=== PATIENT | female | born 1960 | race Two or more races ===

== ENCOUNTER 2017-05-19 21:51 | Inpatient (IN) | payer BC ==
[2017-05-19] MEDS ORDERED: Acetaminophen TAB* 325 MG PO ONE (22:26)
[2017-05-19] MEDS ORDERED: Ketorolac INJ* 30 MG/ML 1 ML VIAL IV PUSH ONE (22:27)
[2017-05-19] MEDS ORDERED: Ondansetron INJ* 2 MG/ML VIAL IV ONE (22:27)
[2017-05-19] MEDS: NS 0.9% 1000 ML* 2,000 ML IV ONE (23:13)
[2017-05-19 23:19] LABS: ABS Basophils 0.2 10^3/ul (0-0.2); ABS Eosinophils 0.2 10^3/ul (0-0.6); ABS Lymphocytes 0.2 10^3/ul (1.0-4.8); ABS Monocytes 0.7 10^3/ul (0-0.8); ABS Neutrophils 13.8 10^3/ul (1.5-7.7); ABS Nucleated RBC 0 10^3/ul; Eosinophil % 1.6 % (0-6); Hematocrit 35 % (35-47); Hemoglobin 11.1 g/dl (12.0-16.0); Lymphocyte % 1.1 % (25-47); Mean Corpuscular HGB Conc 32 g/dl (31-36); Mean Corpuscular Hemoglobin 25 pg (27-31); Mean Corpuscular Volume 77 fL (80-97); Mean Platelet Volume 9 um3 (7.4-10.4); Nucleated Red Blood Cells % 0; Platelet Count 203 10^3/ul (150-450); Red Blood Count 4.46 10^6/ul (4.0-5.4); Red Cell Distribution Width 14 % (10.5-15)
[2017-05-19 23:33] LABS: EGFR Non-African American 26.6 (>60)
[2017-05-19] MEDS ORDERED: Insulin REGULAR(*) 1 UNITS UNIT IV PUSH ONE (23:44)
[2017-05-19] MEDS ORDERED: NS 0.9% 1000 ML* 1,000 ML IV ONE (23:46)
[2017-05-20] MEDS: NS 0.9% 1000 ML* 2,000 ML IV ONE (00:22)
--- NOTE | 2017-05-20 01:40 | ED ---
Gokul Bateman Gabriel, scribBailey Munoz MD on 05/19/17 at 2222 . Influenza-Like Illness - HPI Summary HPI Summary: This patient is a 56 year old F presenting to [facility] accompanied by her with a chief complaint of flu like illness since 05-15-17. The patient rates the pain 9/10 in severity. Patient reports vomiting, back pain, neck pain, sore throat, myalgia fever of 102 F, and lump in her groin with hard unilateral vaginal wall. Patient denies diarrhea. - History of Current Complaint Chief Complaint: EDFever Time Seen by Provider: 05/19/17 22:12 Hx Obtained From: Patient Onset/Duration: Lasting Days, Still Present Severity: Moderate Associated Signs & Symptoms: Fever, Myalgia, Sore Throat, Vomiting - Allergy/Home Medications Allergies/Adverse Reactions: Allergies Allergy/AdvReac Type Severity Reaction Status Date / Time No Known Allergies Allergy Verified 05/19/17 22:57 PMH/Surg Hx/FS Hx/Imm Hx Endocrine/Hematology History: Reports: Hx Diabetes Cardiovascular History: Reports: Hx Hypertension, Other Cardiovascular Problems/ Disorders - STATES "ENLARGED HEART" Musculoskeletal History: Reports: Hx Bursitis - SEPTEMBER 2015, LEFT HIP, INJECTION HELPED Sensory History: Reports: Hx Cataracts - BILATERAL, Hx Contacts or Glasses - READING Comment Only: Hx Hearing Aid - HARD OF HEARING, NO AID Opthamlomology History: Reports: Hx Cataracts - BILATERAL, Hx Contacts or Glasses - READING Neurological History: Reports: Hx Nerve Disease Psychiatric History: Reports: Hx Anxiety - Surgical History Surgery Procedure, Year, and Place: 2004 HYSTERECTOMY [facility]. LIPOMA OF RIGHT HIP [facility] Hx Anesthesia Reactions: Yes - N/V Infectious Disease History: No Infectious Disease History: Denies: Traveled Outside the [place] in Last 30 Days - Family History Known Family History: Positive: Cardiac Disease, Hypertension - Social History Alcohol Use: None Alcohol Amount: 1-2 DRINKS/MONTH Substance Use Type: Reports: None Smoking Status (MU): Former Smoker Have You Smoked in the Last Year: No Review of Systems Positive: Fever Positive: Sore Throat Positive: Vomiting Positive: other - vaginal wall is hard Positive: Myalgia, Other - neck and back pain All Other Systems Reviewed And Are Negative: Yes Physical Exam - Summary Physical Exam Summary: VITAL SIGNS: Reviewed. GENERAL: Patient is a well-developed and nourished female who is lying comfortable in the stretcher. Patient is not in any acute respiratory distress. HEAD AND FACE: No signs of trauma. No ecchymosis, hematomas or skull depressions. No sinus tenderness. EYES: PERRLA, EOMI x 2, No injected conjunctiva, no nystagmus. EARS: Hearing grossly intact. Ear canals and tympanic membranes are within normal limits. MOUTH: Oropharynx within normal limits. NECK: Supple, trachea is midline, no adenopathy, no JVD, no carotid bruit, no c- spine tenderness, neck with full ROM. CHEST: Symmetric, no tenderness at palpation LUNGS: Clear to auscultation bilaterally. No wheezing or crackles. CVS: Regular rate and rhythm, S1 and S2 present, no murmurs or gallops appreciated. ABDOMEN: Soft, non-tender. No signs of distention. No rebound no guarding, and no masses palpated. Bowel sounds are normal. EXTREMITIES: FROM in all major joints, no edema, no cyanosis or clubbing. NEURO: Alert and oriented x 3. No acute neurological deficits. Speech is normal and follows commands. SKIN: Dry and warm : Very small dried boil over the right genital area Triage Information Reviewed: Yes Vital Signs On Initial Exam: Initial Vitals Temp Pulse Resp BP Pulse Ox 99.8 F 119 20 112/63 100 05/19/17 21:57 05/19/17 21:57 05/19/17 21:57 05/19/17 21:57 05/19/17 21:57 Vital Signs Reviewed: Yes Diagnostics - Vital Signs Vital Signs Temp Pulse Resp BP Pulse Ox 05/19/17 21:57 99.8 F 119 20 112/63 100 - Laboratory Result Diagrams: 05/19/17 22:58 05/19/17 22:58 Lab Statement: Any lab studies that have been ordered have been reviewed, and results considered in the medical decision making process. - Radiology CXR Radiology Interpretation Completed By: ED Physician - no acute process - CT CT ABD/Pelvis CT Interpretation Completed By: Radiologist - there is no bowel obstruction, free air, or free fluid. Negative for diverticulitis or colitis. Normal appendix. No urinary tract stone or obstruction. No acute abnormalities of the liver, spleen, gallbladder, pancreas, or adrenal glands. Osseous structures are intact. ED physician has reviewed this report. Flu Symptom Course/Dx - Course Assessment/Plan: This patient is a 56 year old F presenting to [facility] accompanied by her with a chief complaint of flu like illness since 2- 18. The patient rates the pain 9/10 in severity. Patient reports vomiting, back pain, neck pain, sore throat, myalgia fever of 102 F, and lump in her groin with hard unilateral vaginal wall. Patient denies diarrhea. CXR reveals, no acute process. CT ABD/Pelvis, reveals per radiology, there is no bowel obstruction, free air, or free fluid. Negative for diverticulitis or colitis. Normal appendix. No urinary tract stone or obstruction. No acute abnormalities of the liver, spleen, gallbladder, pancreas, or adrenal glands. Osseous structures are intact. Test results with no significant abnormalities except for a glucose of 666 and a lactic acid of 2.7. Pt was negative for influenza A and B. In the ED course the patient was given Zofran, toradol, insulin and IV fluids. Dx hyperglycemia, viral syndrome, nausea, vomiting,. We discussed patient care with Dr. Colvin and they have agreed to admit the patient. Patient will be admitted to [facility] under Dr. Colvin. The patient is agreeable with this plan. - Diagnoses Provider Diagnoses: Hyperglycemia, Vomiting, Viral syndrome - Physician Notifications Discussed Care Of Patient With: Nura Colvin Time Discussed With Above Provider: 01:20 Instructed by Provider To: Admit As Inpatient Discharge - Discharge Plan Condition: Fair Disposition: ADMITTED TO [facility] Referrals: Nick Carlin MD [Primary Care Provider] - The documentation as recorded by the Gokul sanchez Gabriel accurately reflects the service I personally performed and the decisions made by me, Bailey Lieberman MD.
[2017-05-20] MEDS ORDERED: Insulin REGULAR(*) 1 UNITS UNIT IV PUSH ONE (01:46)
[2017-05-20] MEDS ORDERED: CMCS:Melatonin (NF) 3 MG TAB PO PRN (01:49)
[2017-05-20] MEDS ORDERED: Albuterol 2.5 MG/3 ML NEB.SOL* (0.083%) INH PRN (01:49)
[2017-05-20] MEDS ORDERED: NS 0.9% 1000 ML* 1,000 ML IV SCH (02:00)
[2017-05-20] MEDS ORDERED: Fluconazole 100 MG TAB* TAB PO ONE (02:06)
[2017-05-20 02:15] LABS: Urine Appearance Turbid; Urine Blood 2+ (Negative); Urine Color Yellow; Urine Ketones Trace (Negative); Urine Protein 2+(100 mg/dL) (Negative); Urine Specific Gravity 1.024 (1.010-1.030); Urine Urobilinogen Negative (Negative)
[2017-05-20] MEDS ORDERED: Insulin LISPRO* 1 UNITS UNIT SUBCUT ONE (02:21)
[2017-05-20] MEDS ORDERED: Dextrose 50% Syringe 50 ML* 25 GM/50 ML SYRINGE IV PUSH PRN (02:21)
[2017-05-20] MEDS: Phenazopyridine TAB* 100 MG PO PRN ×2 (02:38→08:34)
--- NOTE | 2017-05-20 03:09 | HP ---
H&P (Free Text) History and Physical: PCP: Tommie Carlin MD Date/Time: 05/20/2017 0145 CC: malaise HPI: Mrs Grady Jose is a 56YO female HX DM2 w/ diabetic retinopathy/ neuropathy, HTN w/ hypertensive retinopathy who reports fatigue, subjective F/C , & myalgias starting 4-5 days ago. Here in ED she just began having severe vaginal burning after urination w/o frequency or urgency. She denies abdominal pain, chest pain, SOB, cough, congestion, N/V, diarrhea, change in bowels, or other issues. She does admit to non-adherence with diabetic medications, particularly metformin. PMedHx DM2 diabetic retinopathy diabetic neuropathy HTN hypertensive retinopathy Ambulatory Orders Nursing to reconcile. 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; full code status FamHx: positive for DM2 & HTN ROS: as above, otherwise reviewed and all were negative vitals: Vital Signs Temp 37.9 C 05/19/17 23:20 Pulse 109 05/20/17 01:30 Resp 15 05/20/17 01:30 BP 115/63 05/20/17 01:30 Pulse Ox 96 05/20/17 01:30 Intake & Output 05/19/17 05/19/17 05/20/17 11:59 23:59 11:59 Intake Total 1999 Balance 1999 Weight 68.039 kg Intake: IV Fluids 1999 Constitutional: NAD, normally developed, overweight black female HEENM: atraumatic; sclera/conjunctiva: anicteric/clear; hearing: clinically intact; oropharynx: clear, mucosa moist Neck: soft tissue: no nuchal rigidity; thyroid: normal Pulmonary: clear to auscultation bilaterally, good aeration, no accessory muscle use CV: RR/RR, normal S1S2, no carotid bruit, no jugular venous distention, 2+ B DP/ PT, no edema Abdominal: soft, non-distended, non-tender, no rebound/guarding/rigidity, normoactive bowel sounds, no hepatosplenomegaly or masses, no costovertebral angle tenderness Genitourinary: R labia minora with punctate excoriations/abrasions, no discharge or malodor Musculoskeletal: general: grossly intact, no tenderness w/ palpation Integumental: normal appearance and texture of exposed skin Psychiatric orientation: AA&O to PPS affect: calm mood: cooperative eye contact: fair content: reliable responses: timely insight: fair Testing: Lab Results 05/19/17 05/19/17 05/19/17 Range/Units 22:58 22:58 22:58 WBC 15.0 H (3.5-10.8) 10^3/ul RBC 4.46 (4.0-5.4) 10^6/ul Hgb 11.1 L (12.0-16.0) g/dl Hct 35 (35-47) % MCV 77 L (80-97) fL MCH 25 L (27-31) pg MCHC 32 (31-36) g/dl RDW 14 (10.5-15) % Plt Count 203 (150-450) 10^3/ul MPV 9 (7.4-10.4) um3 Neut % (Auto) 91.6 H (38-83) % Lymph % (Auto) 1.1 L (25-47) % [place] % (Auto) 4.5 (1-9) % Eos % (Auto) 1.6 (0-6) % Baso % (Auto) 1.2 (0-2) % Absolute Neuts (auto) 13.8 H (1.5-7.7) 10^3/ul Absolute Lymphs (auto) 0.2 L (1.0-4.8) 10^3/ul Absolute Monos (auto) 0.7 (0-0.8) 10^3/ul Absolute Eos (auto) 0.2 (0-0.6) 10^3/ul Absolute Basos (auto) 0.2 (0-0.2) 10^3/ul Absolute Nucleated RBC 0 10^3/ul Nucleated RBC % 0 ABG pH (7.35-7.45) ABG pCO2 (35-45) mmHg ABG pO2 (80-100) mmHg ABG HCO3 (19-31) mmol/L ABG O2 Saturation (95-98) % ABG Base Excess (-2.0-2.0) Sodium 122 L (133-145) mmol/L Potassium 3.7 (3.5-5.0) mmol/L Chloride 88 L (101-111) mmol/L Carbon Dioxide 23 (22-32) mmol/L Anion Gap 11 (2-11) mmol/L BUN 30 H (6-24) mg/dL Creatinine 1.94 H (0.51-0.95) mg/dL Est GFR ( Amer) 34.2 (>60) Est GFR (Non-Af Amer) 26.6 (>60) BUN/Creatinine Ratio 15.5 (8-20) Glucose 666 H* (70-100) mg/dL Lactic Acid 2.7 H* (0.5-2.0) mmol/L Calcium 8.9 (8.6-10.3) mg/dL Total Bilirubin 0.40 (0.2-1.0) mg/dL AST 16 (13-39) U/L ALT 18 (7-52) U/L Alkaline Phosphatase 120 H (34-104) U/L C-Reactive Protein 422.26 H (< 5.00) mg/L Total Protein 7.0 (6.4-8.9) g/dL Albumin 3.1 L (3.2-5.2) g/dL Globulin 3.9 (2-4) g/dL Albumin/Globulin Ratio 0.8 L (1-3) Urine Color Urine Appearance Urine pH (5-9) Ur Specific Hubbard (1.010-1.030) Urine Protein (Negative) Urine Ketones (Negative) Urine Blood (Negative) Urine Nitrate (Negative) Urine Bilirubin (Negative) Urine Urobilinogen (Negative) Ur Leukocyte Esterase (Negative) Urine WBC (Auto) (Absent) Urine RBC (Auto) (Absent) Ur Squamous Epith Cells (Absent) Urine Bacteria (Absent) Urine Glucose (Negative) Influenza A (Rapid) (Negative) Influenza B (Rapid) (Negative) Group A Strep Rapid (Negative) 05/19/17 05/19/17 05/20/17 Range/Units 23:53 23:57 01:19 WBC (3.5-10.8) 10^3/ul RBC (4.0-5.4) 10^6/ul Hgb (12.0-16.0) g/dl Hct (35-47) % MCV (80-97) fL MCH (27-31) pg MCHC (31-36) g/dl RDW (10.5-15) % Plt Count (150-450) 10^3/ul MPV (7.4-10.4) um3 Neut % (Auto) (38-83) % Lymph % (Auto) (25-47) % Highlands % (Auto) (1-9) % Eos % (Auto) (0-6) % Baso % (Auto) (0-2) % Absolute Neuts (auto) (1.5-7.7) 10^3/ul Absolute Lymphs (auto) (1.0-4.8) 10^3/ul Absolute Monos (auto) (0-0.8) 10^3/ul Absolute Eos (auto) (0-0.6) 10^3/ul Absolute Basos (auto) (0-0.2) 10^3/ul Absolute Nucleated RBC 10^3/ul Nucleated RBC % ABG pH 7.39 (7.35-7.45) ABG pCO2 33 L (35-45) mmHg ABG pO2 82 (80-100) mmHg ABG HCO3 21.5 (19-31) mmol/L ABG O2 Saturation 97.6 (95-98) % ABG Base Excess -4.3 L (-2.0-2.0) Sodium (133-145) mmol/L Potassium (3.5-5.0) mmol/L Chloride (101-111) mmol/L Carbon Dioxide (22-32) mmol/L Anion Gap (2-11) mmol/L BUN (6-24) mg/dL Creatinine (0.51-0.95) mg/dL Est GFR ( Amer) (>60) Est GFR (Non-Af Amer) (>60) BUN/Creatinine Ratio (8-20) Glucose (70-100) mg/dL Lactic Acid (0.5-2.0) mmol/L Calcium (8.6-10.3) mg/dL Total Bilirubin (0.2-1.0) mg/dL AST (13-39) U/L ALT (7-52) U/L Alkaline Phosphatase (34-104) U/L C-Reactive Protein (< 5.00) mg/L Total Protein (6.4-8.9) g/dL Albumin (3.2-5.2) g/dL Globulin (2-4) g/dL Albumin/Globulin Ratio (1-3) Urine Color Urine Appearance Urine pH (5-9) Ur Specific Hubbard (1.010-1.030) Urine Protein (Negative) Urine Ketones (Negative) Urine Blood (Negative) Urine Nitrate (Negative) Urine Bilirubin (Negative) Urine Urobilinogen (Negative) Ur Leukocyte Esterase (Negative) Urine WBC (Auto) (Absent) Urine RBC (Auto) (Absent) Ur Squamous Epith Cells (Absent) Urine Bacteria (Absent) Urine Glucose (Negative) Influenza A (Rapid) Negative (Negative) Influenza B (Rapid) Negative (Negative) Group A Strep Rapid Negative (Negative) 05/20/17 05/20/17 Range/Units 01:47 01:55 WBC (3.5-10.8) 10^3/ul RBC (4.0-5.4) 10^6/ul Hgb (12.0-16.0) g/dl Hct (35-47) % MCV (80-97) fL MCH (27-31) pg MCHC (31-36) g/dl RDW (10.5-15) % Plt Count (150-450) 10^3/ul MPV (7.4-10.4) um3 Neut % (Auto) (38-83) % Lymph % (Auto) (25-47) % [place] % (Auto) (1-9) % Eos % (Auto) (0-6) % Baso % (Auto) (0-2) % Absolute Neuts (auto) (1.5-7.7) 10^3/ul Absolute Lymphs (auto) (1.0-4.8) 10^3/ul Absolute Monos (auto) (0-0.8) 10^3/ul Absolute Eos (auto) (0-0.6) 10^3/ul Absolute Basos (auto) (0-0.2) 10^3/ul Absolute Nucleated RBC 10^3/ul Nucleated RBC % ABG pH (7.35-7.45) ABG pCO2 (35-45) mmHg ABG pO2 (80-100) mmHg ABG HCO3 (19-31) mmol/L ABG O2 Saturation (95-98) % ABG Base Excess (-2.0-2.0) Sodium (133-145) mmol/L Potassium (3.5-5.0) mmol/L Chloride (101-111) mmol/L Carbon Dioxide (22-32) mmol/L Anion Gap (2-11) mmol/L BUN (6-24) mg/dL Creatinine (0.51-0.95) mg/dL Est GFR ( Amer) (>60) Est GFR (Non-Af Amer) (>60) BUN/Creatinine Ratio (8-20) Glucose 531 H* (70-100) mg/dL Lactic Acid (0.5-2.0) mmol/L Calcium (8.6-10.3) mg/dL Total Bilirubin (0.2-1.0) mg/dL AST (13-39) U/L ALT (7-52) U/L Alkaline Phosphatase (34-104) U/L C-Reactive Protein (< 5.00) mg/L Total Protein (6.4-8.9) g/dL Albumin (3.2-5.2) g/dL Globulin (2-4) g/dL Albumin/Globulin Ratio (1-3) Urine Color Yellow Urine Appearance Turbid Urine pH 5.0 (5-9) Ur Specific Hubbard 1.024 (1.010-1.030) Urine Protein 2+(100 mg/dl) H (Negative) Urine Ketones Trace H (Negative) Urine Blood 2+ H (Negative) Urine Nitrate Negative (Negative) Urine Bilirubin Negative (Negative) Urine Urobilinogen Negative (Negative) Ur Leukocyte Esterase 3+ H (Negative) Urine WBC (Auto) 3+(>20/hpf) H (Absent) Urine RBC (Auto) 3+(>10/hpf) H (Absent) Ur Squamous Epith Cells Present H (Absent) Urine Bacteria 3+ H (Absent) Urine Glucose 3+(>=500 mg/dl) H (Negative) Influenza A (Rapid) (Negative) Influenza B (Rapid) (Negative) Group A Strep Rapid (Negative) CXR, personally reviewed: no acute pathology CT abd/pel W, personally reviewed: FINDINGS: There is no bowel obstruction, free air, or free fluid. Negative for diverticulitis or colitis. Normal appendix. No urinary tract stone or obstruction. No acute abnormalities of the liver, spleen, gallbladder, pancreas, or adrenal glands. Osseous structures are intact. Impression: 56F presenting with malaise, hyperglycemia in setting of non- adherent DM2, & markedly elevated CRP DIAGNOSIS & PLAN Primary SIRS 2nd UTI : IV ceftriaxone : blood & urine CXs DM2, poorly controlled : check A1c : insulin carb ratio diet : basal/bolus/correctional insulin : supportive care elevated creatinine ? baseline vs CROW : IVFs, trend markedly elevated CRP : uncertain etiology, trend Secondary HTN : review meds once reconciled Admission Rational: observation for hyperglycemia DVTp: SCDs & heparin SQ Code Status: full HCP:
[2017-05-20 03:31] LABS: INR 1.29 (0.77-1.02)
[2017-05-20 03:48] LABS: EGFR Non-African American 27.2 (>60)
[2017-05-20] MEDS ORDERED: cefTRIAXone VIAL(*) 1,000 MG in NS 0.9% 50 ML* 50 ML IVPB SCH (04:00)
[2017-05-20] MEDS: NS 0.9% 1000 ML* 1,000 ML IV SCH (04:27)
[2017-05-20] MEDS: Omeprazole CAP* 20 MG PO SCH (05:53)
[2017-05-20 07:00] LABS: Hematocrit 28 % (35-47); Hemoglobin 9.4 g/dl (12.0-16.0); Mean Corpuscular HGB Conc 33 g/dl (31-36); Mean Corpuscular Hemoglobin 25 pg (27-31); Mean Corpuscular Volume 75 fL (80-97); Mean Platelet Volume 9 um3 (7.4-10.4); Platelet Count 187 10^3/ul (150-450); Red Blood Count 3.77 10^6/ul (4.0-5.4); Red Cell Distribution Width 14 % (10.5-15)
[2017-05-20 07:11] LABS: EGFR Non-African American 28.5 (>60)
--- NOTE | 2017-05-20 07:20 | RAD ---
INDICATION: Fever COMPARISON: None. TECHNIQUE: Single AP portable view of the chest was obtained. FINDINGS: Image quality is compromised due to the relative inferiority of a portable chest x-ray. The heart and mediastinum exhibit normal size and contour. The lungs are grossly clear. There is no evidence of a large pleural effusion. Visualized bones are normal for the patient's age. IMPRESSION: No radiographic evidence for acute cardiopulmonary abnormality on this portable chest x-ray.
[2017-05-20 07:33] LABS: ABS Basophils 0 10^3/ul (0-0.2); ABS Eosinophils 0.3 10^3/ul (0-0.6); ABS Lymphocytes 0.2 10^3/ul (1.0-4.8); ABS Monocytes 0.8 10^3/ul (0-0.8); ABS Neutrophils 13.7 10^3/ul (1.5-7.7); ABS Nucleated RBC 0 10^3/ul; Eosinophil % 2.3 % (0-6); Lymphocyte % 1.4 % (25-47); Nucleated Red Blood Cells % 0
--- NOTE | 2017-05-20 07:34 | RAD ---
INDICATION: Abdominal pain and nausea. COMPARISON: There are no prior studies available for comparison. TECHNIQUE: A CT scan of the abdomen and pelvis was performed without intravenous or oral contrast. Contiguous axial sections were obtained from the lung bases through the symphysis pubis. Images were reconstructed in the coronal and sagittal planes. FINDINGS: There is mild dependent bilateral lower lobe subsegmental atelectasis. No pleural effusion is present. The liver and spleen are within normal limits in size without significant focal abnormality on this noncontrast study. No calcified gallstones are seen. The pancreas appears to be within normal limits in size. The adrenal glands and kidneys are normal in size. No renal calculi or hydronephrosis is seen. The aorta is normal in caliber with mild calcific plaque present. No significant enlarged retroperitoneal lymph nodes are seen. The stomach, small and large bowel appear nondistended. The appendix is within normal limits. There is [id number] descending sigmoid diverticulosis without evidence for diverticulitis. There is a small periumbilical hernia containing fat. The patient is status post hysterectomy. No free intraperitoneal air or fluid is seen. No significant focal osseous abnormality is seen. IMPRESSION: NO EVIDENCE FOR ACUTE INTRA-ABDOMINAL ABNORMALITY OR CAUSE FOR THE PATIENT'S ABDOMINAL PAIN IS SEEN.
[2017-05-20] MEDS: Ondansetron INJ* 2 MG/ML VIAL IV PRN ×3 (08:31→20:39)
[2017-05-20] MEDS: Acetaminophen TAB* 325 MG PO PRN ×3 (08:33→20:39)
[2017-05-20] MEDS: Potassium Chlor TAB* 20 MEQ TAB.ER PO SCH ×2 (08:33→20:41)
[2017-05-20] MEDS ORDERED: Influenza VAC *QUAD* 2017-18* 0.5 ML SYRINGE IM ONE (09:00)
[2017-05-20] MEDS: Insulin LISPRO* 1 UNITS UNIT SUBCUT SCH ×7 (09:37→20:44)
[2017-05-20] MEDS: Docusate CAP* 100 MG PO SCH ×2 (09:38→20:44)
[2017-05-20] MEDS: Benzocaine/Menthol LOZ* 1 LOZENGE PO PRN ×2 (09:38→15:26)
[2017-05-20] MEDS: Phenol 1.4% Spray* 177 ML BTL MT PRN ×2 (09:39→17:46)
[2017-05-20] MEDS ORDERED: cefTRIAXone VIAL(*) 1,000 MG in D5W 50 ML BAG* 50 ML IVPB SCH (10:12)
[2017-05-20] MEDS: Clindamycin 600 MG IVPREMIX(* 600 MG/50 ML SDV IV SCH ×2 (10:49→17:46)
[2017-05-20] MEDS: Lactobacillus Acidophilu (GG)* 1 CAP CAP PO SCH (10:49)
--- NOTE | 2017-05-20 14:05 | PN ---
Subjective Date of Service: 05/20/17 Interval History: Patient complains of a lump in her throat with difficulty swallowing and pain. Patient states she had laryngitis 2 weeks ago but that this is a new finding. Patient also states that she has had a "blister" in he groin which she was treating with antibiotic ointment but recently "popped" and has been getting worse and more painful. Patient denies new sexual partners or contacts. Patient also complains of continued burning with urination. Patient denies other abdominal pain, diarrhea, constipation, F/C, N/V, CP, SOB, or other pain. Family History: Unchanged from Admission Social History: Unchanged from Admission Past Medical History: Unchanged from Admission Objective Active Medications: Acetaminophen (Tylenol Tab*) 650 mg PO Q6H PRN PRN Reason: FEVER/PAIN Last Admin: 05/20/17 08:33 Dose: 650 mg Albuterol (Ventolin 2.5 Mg/3 Ml Neb.Kathy*) 2.5 mg INH Q2H PRN PRN Reason: SOB/WHEEZING Dextrose (D50w Syringe 50 Ml*) 12.5 gm IV PUSH .FOR FS < 60 - SS PRN PRN Reason: FS < 60 Docusate Sodium (Colace Cap*) 200 mg PO BID [facility] Last Admin: 05/20/17 09:38 Dose: 200 mg Heparin Sodium (Porcine) (Heparin Vial(*)) 5,000 units SUBCUT Q8HR [facility] Sodium Chloride (Ns 0.9% 1000 Ml*) 1,000 mls @ 125 mls/hr IV PER RATE [facility] Last Admin: 05/20/17 04:27 Dose: 125 mls/hr Clindamycin HCl/Dextrose (Cleocin 600 Mg Ivpremix(*) Sdv) 600 mg in 50 mls @ 100 mls/hr IV Q8H [facility] Last Admin: 05/20/17 10:49 Dose: 100 mls/hr Ceftriaxone Sodium 1,000 mg/ (Dextrose) 50 mls @ 200 mls/hr IVPB Q24H [facility] Insulin Glargine (Lantus(*)) 14 units 0.2 units/kg (14 units) SUBCUT 2100 [facility] Stop: 05/21/17 20:00 Insulin Human Lispro (Humalog*) 0 units SUBCUT AC [facility] PRN Reason: Protocol Last Admin: 05/20/17 13:26 Dose: 5 unit Insulin Human Lispro (Humalog*) 0 units SUBCUT ACHS [facility] PRN Reason: Protocol Last Admin: 05/20/17 13:27 Dose: 8 unit Lactobacillus Rhamnosus (Culturelle*) 1 cap PO DAILY [facility] Last Admin: 05/20/17 10:49 Dose: 1 cap Melatonin (Melatonin (Nf)) 3 mg PO BEDTIME PRN; Protocol PRN Reason: Sleep Omeprazole (Prilosec Cap*) 20 mg PO DAILY@0600 [facility] Last Admin: 05/20/17 05:53 Dose: 20 mg Ondansetron HCl (Zofran Inj*) 4 mg IV Q6H PRN PRN Reason: NAUSEA Last Admin: 05/20/17 08:31 Dose: 4 mg Phenazopyridine HCl (Pyridium Tab*) 200 mg PO TID PRN PRN Reason: Dysuria Last Admin: 05/20/17 08:34 Dose: 200 mg Phenol/Menthol (Chloroseptic Throat [place]*) 1 spray MT TID PRN PRN Reason: SORE THROAT Last Admin: 05/20/17 09:39 Dose: 1 spray Potassium Chloride (Klor Con Er Tab*) 20 meq PO BID [facility] Stop: 05/20/17 21:01 Last Admin: 05/20/17 08:33 Dose: 20 meq Throat Lozenges (Chloraseptic [place]*) 1 leodan PO Q6H PRN PRN Reason: SORE THROAT Last Admin: 05/20/17 09:38 Dose: 1 leodan Vital Signs - 8 hr 05/20/17 05/20/17 05/20/17 08:00 08:56 11:13 Temperature 99.4 F 99.4 F Pulse Rate 114 114 110 Respiratory 18 16 18 Rate Blood Pressure 127/63 113/63 (mmHg) O2 Sat by Pulse 98 97 96 Oximetry Oxygen Devices in Use Now: None Appearance: Patient is a 56yo female who appears stated age and is sitting in the bed in NAD. Eyes: No Scleral Icterus, PERRLA Ears/Nose/Mouth/Throat: NL Teeth, Lips, Gums, Clear Oropharnyx, Mucous Membranes Moist Neck: NL Appearance and Movements; NL JVP, Trachea Midline, - - Tender submandibular lymphadenopathy. Respiratory: Symmetrical Chest Expansion and Respiratory Effort, Clear to Auscultation Cardiovascular: NL Sounds; No Murmurs; No JVD, RRR, No Edema Abdominal: NL Sounds; No Tenderness; No Distention, No Hepatosplenomegaly, - - No Suprapubic or CVA tenderness. Lymphatic: - - Bilateral Submandibular lymphadenopathy. right sided tender inguinal lymphadenopathy. Extremities: No Edema Skin: - - Small open area with induration and minimal erythema surrounding. No drainage Neurological: Alert and Oriented x 3, NL Sensation, NL Muscle Strength and Tone , - - CN II-XII intact. Result Diagrams: 05/20/17 06:34 05/20/17 06:34 Assess/Plan/Problems-Billing Assessment: Patient is a 56yo female with a PMH significant for DM II, or HTN who presents with hyperglycemia, difficulty swallowing and throat pain, groin ulcer, and UTI who is being treated with insulin, Clindamycin and Ceftriaxone - Patient Problems (1) Uncontrolled diabetes mellitus Current Visit: Yes Status: Acute Code(s): E11.65 - TYPE 2 DIABETES MELLITUS WITH HYPERGLYCEMIA SNOMED Code(s): 681056262 Comment: Patient came in with a blood glucose greater than 550 and is decreasing with Lantus 20u Daily with SSI and carb counting. HgbA1c was 14.2. States that she has not been compliant with medications. Hold Metformin and Glimiperide. Will stress compliance with patient at discharge. (2) Cellulitis Current Visit: Yes Status: Acute Code(s): L03.90 - CELLULITIS, UNSPECIFIED SNOMED Code(s): 506735257 Comment: Cellulitis in groin with possible abscess and induration with inguinal lymphadenopathy. Probably staphylococcal cellulitis. Small and not in an area amenable to I+D. Started on Clindamycin IV. (3) Dysphagia Current Visit: Yes Status: Acute Code(s): R13.10 - DYSPHAGIA, UNSPECIFIED SNOMED Code(s): 01312853 Comment: Pain and difficulty with swallowing. Feels like there is a lump in her throat. Self-resolving laryngitis 2 weeks ago. Was not tested for strep throat. Possible retropharyngeal or paratonsillar abscess. Possible slight uvular deviation to the right on exam. Limited by arching of palate. Submadibular lymphadenopathy. US ordered to assess for abscess. Unable to do contrast CT due to CROW. Covered by Clindamycin. (4) Urinary tract infection Current Visit: Yes Status: Acute Comment: Grossly positive UA. Continue Ceftriaxone. Awaiting culture. Has dysuria which is improving. (5) Hypertension Current Visit: Yes Status: Acute Code(s): I10 - ESSENTIAL (PRIMARY) HYPERTENSION SNOMED Code(s): 21785526 Comment: Normotensive off medications. Hold amlodipine. (6) Acute kidney injury Current Visit: Yes Status: Acute Code(s): N17.9 - ACUTE KIDNEY FAILURE, UNSPECIFIED SNOMED Code(s): 28914654 Comment: Cret increased to 1.9 at admission. Improved with fluid. Likely from dehydration. Most recently .8 in 2016. Continue fluids. Hold nephrotoxic medications. (7) DVT prophylaxis Current Visit: Yes Status: Acute Code(s): OML3184 - SNOMED Code(s): 085381335 Comment: HSQ (8) Full code status Current Visit: Yes Status: Acute Code(s): Z78.9 - OTHER SPECIFIED HEALTH STATUS SNOMED Code(s): 235086229 Status and Disposition: Patient is admitted inpatient.
--- NOTE | 2017-05-20 17:45 | RAD ---
HISTORY: Assess for peritonsillar or retropharyngeal abscess, hyperglycemia, no other history is provided COMPARISONS: None TECHNIQUE: Multiple contiguous axial CT scans were obtained of the neck without intravenous contrast, with coronal and sagittal multiplanar reformations. FINDINGS: The study is limited by the lack of intravenous contrast. This limits evaluation of the solid organs and vasculature. BRAIN AND ORBITS: The visualized brain and orbits are normal. PARANASAL SINUSES: The visualized paranasal sinuses are clear. SALIVARY GLANDS: The parotid glands, submandibular glands, sublingual glands are normal. NASAL CAVITY/NASOPHARYNX: The nasal cavity and nasopharynx are normal. ORAL CAVITY/OROPHARYNX: The oral cavity is obscured by streak artifact from dental amalgam. The visualized oral cavity and oropharynx are unremarkable. There is no appreciable mucosal thickening are likely fluid collection. There is no stranding of the peritoneal fat. LARYNGEAL APPARATUS/HYPOPHARYNX: The laryngeal apparatus and hypopharynx are normal. UPPER AIRWAY/UPPER ESOPHAGUS: The visualized upper airway and esophagus are normal. LUNG APICES: The lung apices are clear. There is a small left pleural effusion. THYROID GLAND: There is a 0.8 cm nodule of the left lower thyroid. LYMPH NODES: There is no lymphadenopathy by size criteria. VASCULATURE: The vasculature is unremarkable. BONES AND SOFT TISSUES: No bone or soft tissue abnormalities are noted. OTHER: None. IMPRESSION: NO INFLAMMATORY CHANGE, MUCOSAL THICKENING, OR LOCULATED FLUID COLLECTION OF THE VISUALIZED PHARYNX TO SUGGEST ABSCESS. SMALL LEFT PLEURAL EFFUSION. .
[2017-05-20] MEDS ORDERED: Insulin GLARGINE(*) 1 UNITS UNIT SUBCUT SCH (21:00)
[2017-05-20] MEDS ORDERED: PROCHLORPERAZINE INJ 5 MG/ML 2 ML VIAL IV PRN (21:02)
[2017-05-21] MEDS: Clindamycin 600 MG IVPREMIX(* 600 MG/50 ML SDV IV SCH ×2 (02:19→10:36)
[2017-05-21] MEDS: traMADol TAB* 50 MG PO PRN (02:22)
[2017-05-21] MEDS: cefTRIAXone VIAL(*) 1,000 MG in D5W 50 ML BAG* 50 ML IVPB SCH (03:58)
[2017-05-21] MEDS: NS 0.9% 1000 ML* 1,000 ML IV SCH ×2 (04:04→10:36)
[2017-05-21] MEDS: Heparin VIAL(*) 5000 UNITS/ML VIAL (FIVE THOUSAND) SUBCUT SCH ×4 (05:42→21:15)
[2017-05-21] MEDS: Omeprazole CAP* 20 MG PO SCH (05:42)
[2017-05-21] MEDS: Insulin LISPRO* 1 UNITS UNIT SUBCUT SCH ×7 (10:11→21:16)
[2017-05-21] MEDS: Acetaminophen TAB* 325 MG PO PRN ×2 (10:13→23:14)
[2017-05-21] MEDS: Phenazopyridine TAB* 100 MG PO PRN (10:14)
[2017-05-21] MEDS: Docusate CAP* 100 MG PO SCH ×2 (10:14→21:14)
[2017-05-21] MEDS: Lactobacillus Acidophilu (GG)* 1 CAP CAP PO SCH (10:14)
[2017-05-21 12:34] LABS: Hematocrit 27 % (35-47); Hemoglobin 8.8 g/dl (12.0-16.0); Mean Corpuscular HGB Conc 33 g/dl (31-36); Mean Corpuscular Hemoglobin 25 pg (27-31); Mean Corpuscular Volume 76 fL (80-97); Mean Platelet Volume 9 um3 (7.4-10.4); Platelet Count 169 10^3/ul (150-450); Red Blood Count 3.57 10^6/ul (4.0-5.4); Red Cell Distribution Width 14 % (10.5-15); White Blood Count 17.5 10^3/ul (3.5-10.8)
[2017-05-21 12:49] LABS: EGFR Non-African American 26.4 (>60)
[2017-05-21 13:03] LABS: ABS Basophils 0.2 10^3/ul (0-0.2); ABS Eosinophils 0.5 10^3/ul (0-0.6); ABS Lymphocytes 1.2 10^3/ul (1.0-4.8); ABS Monocytes 1.2 10^3/ul (0-0.8); ABS Neutrophils 14.8 10^3/ul (1.5-7.7); ABS Nucleated RBC 0 10^3/ul; Eosinophil % 2.9 % (0-6); Lymphocyte % 6.5 % (25-47); Nucleated Red Blood Cells % 0
--- NOTE | 2017-05-21 17:52 | RAD ---
HISTORY: Abscess in left groin COMPARISONS: CT dated May 20, 2017 TECHNIQUE: Multiple transverse and longitudinal ultrasound images were obtained of the left inguinal region using grayscale and color Doppler imaging FINDINGS: Typically benign-appearing, reniform, hypoechoic lymph nodes with fatty jackie are noted measuring less than 1 cm in short axis. There is no lymphadenopathy by size criteria. The vasculature is grossly normal. There is subcutaneous edema. There is no loculated fluid collection to suggest abscess. IMPRESSION: SUBCUTANEOUS EDEMA, WITHOUT LOCULATED FLUID COLLECTION TO SUGGEST ABSCESS.
--- NOTE | 2017-05-21 18:35 | PN ---
Subjective Date of Service: 05/21/17 Interval History: Patient states she feels better since yesterday. No pain or difficulty with swallowing. No subjective F/C. No decrease in Urine. Decrease in dysuria. No Cp , SOB. Occasional nausea controlled with Zofran/Compazine. Increased swelling and discharge from lesion in groin. Tender and hard area extending into thigh. No increased Pain. Family History: Unchanged from Admission Social History: Unchanged from Admission Past Medical History: Unchanged from Admission Objective Active Medications: Acetaminophen (Tylenol Tab*) 650 mg PO Q6H PRN PRN Reason: FEVER/PAIN Last Admin: 05/21/17 10:13 Dose: 650 mg Albuterol (Ventolin 2.5 Mg/3 Ml Neb.Kathy*) 2.5 mg INH Q2H PRN PRN Reason: SOB/WHEEZING Dextrose (D50w Syringe 50 Ml*) 12.5 gm IV PUSH .FOR FS < 60 - SS PRN PRN Reason: FS < 60 Docusate Sodium (Colace Cap*) 200 mg PO BID [facility] Last Admin: 05/21/17 10:14 Dose: 200 mg Heparin Sodium (Porcine) (Heparin Vial(*)) 5,000 units SUBCUT Q8HR [facility] Last Admin: 05/21/17 13:40 Dose: 5,000 units Sodium Chloride (Ns 0.9% 1000 Ml*) 1,000 mls @ 125 mls/hr IV PER RATE [facility] Last Admin: 05/21/17 10:36 Dose: 125 mls/hr Ceftriaxone Sodium 1,000 mg/ (Dextrose) 50 mls @ 200 mls/hr IVPB Q24H [facility] Last Admin: 05/21/17 03:58 Dose: 200 mls/hr Insulin Glargine (Lantus(*)) 14 units 0.2 units/kg (14 units) SUBCUT 2100 [facility] Stop: 05/21/17 20:00 Last Admin: 05/20/17 20:42 Dose: 14 units Insulin Human Lispro (Humalog*) 0 units SUBCUT AC [facility] PRN Reason: Protocol Last Admin: 05/21/17 18:00 Dose: 4 unit Insulin Human Lispro (Humalog*) 0 units SUBCUT ACHS [facility] PRN Reason: Protocol Last Admin: 05/21/17 18:01 Dose: 8 unit Lactobacillus Rhamnosus (Culturelle*) 1 cap PO DAILY [facility] Last Admin: 05/21/17 10:14 Dose: 1 cap Melatonin (Melatonin (Nf)) 3 mg PO BEDTIME PRN; Protocol PRN Reason: Sleep Omeprazole (Prilosec Cap*) 20 mg PO DAILY@0600 [facility] Last Admin: 05/21/17 05:42 Dose: 20 mg Ondansetron HCl (Zofran Inj*) 4 mg IV Q6H PRN PRN Reason: NAUSEA Last Admin: 05/20/17 20:39 Dose: 4 mg Phenazopyridine HCl (Pyridium Tab*) 200 mg PO TID PRN PRN Reason: Dysuria Last Admin: 05/21/17 10:14 Dose: 200 mg Phenol/Menthol (Chloroseptic Throat [place]*) 1 spray MT TID PRN PRN Reason: SORE THROAT Last Admin: 05/20/17 17:46 Dose: 1 spray Prochlorperazine Edisylate (Compazine Inj*) 10 mg IV Q6H PRN PRN Reason: NAUSEA/VOMITING Last Admin: 05/21/17 02:22 Dose: 10 mg Throat Lozenges (Chloraseptic [place]*) 1 zakiya PO Q6H PRN PRN Reason: SORE THROAT Last Admin: 05/20/17 15:26 Dose: 1 zakiya Tramadol HCl (Ultram*) 50 mg PO Q6H PRN PRN Reason: PAIN Last Admin: 05/21/17 02:22 Dose: 50 mg Oxygen Devices in Use Now: None Appearance: Patient is a 56yo AA female who appears stated age and is sitting in the bed in [facility]. Eyes: No Scleral Icterus, PERRLA Ears/Nose/Mouth/Throat: NL Teeth, Lips, Gums, Clear Oropharnyx, Mucous Membranes Moist Neck: NL Appearance and Movements; NL JVP, Trachea Midline Respiratory: Symmetrical Chest Expansion and Respiratory Effort, Clear to Auscultation Cardiovascular: NL Sounds; No Murmurs; No JVD, RRR, No Edema, - - Slight edema in hands and feet. Abdominal: NL Sounds; No Tenderness; No Distention, No Hepatosplenomegaly Lymphatic: - - Cervical and right sided inguinal lymphadenopathy. Extremities: No Clubbing, Cyanosis Skin: - - Small open ulcer with induration and spreading redness in groin on right side. Increased in size and drainage from yesterday. Neurological: Alert and Oriented x 3, NL Sensation, NL Muscle Strength and Tone , - - CN II-XII intact. Result Diagrams: 05/21/17 12:07 05/21/17 12:07 Microbiology and Other Data: Microbiology 05/21/17 10:45 Skin and Soft Tissue MRSA/MSSA (PCR - Final Groin Right Mrsa Negative S.aureus Positive Gram Stain - Final 05/20/17 01:55 Urine Culture - Final Urine Assess/Plan/Problems-Billing Assessment: Patient is a 56yo female with a PMH significant for DM II, or HTN who presents with hyperglycemia, difficulty swallowing and throat pain, groin ulcer, and UTI who is being treated with insulin, Clindamycin and Ceftriaxone - Patient Problems (1) Uncontrolled diabetes mellitus Current Visit: Yes Status: Acute Code(s): E11.65 - TYPE 2 DIABETES MELLITUS WITH HYPERGLYCEMIA SNOMED Code(s): 812662667 Comment: Patient came in with a blood glucose greater than 550 and is decreasing with Lantus 20u Daily with SSI and carb counting. HgbA1c was 14.2. States that she has not been compliant with medications. Hold Metformin and Glimiperide. Will stress compliance with patient at discharge. FSBG improved. (2) Cellulitis Current Visit: Yes Status: Acute Code(s): L03.90 - CELLULITIS, UNSPECIFIED SNOMED Code(s): 969296173 Comment: Appreciate ID consult Possible cellulitis in groin with possible abscess and induration with inguinal lymphadenopathy. Could represent supperating LN. Hard area with warmth spreading to thigh. Not abscess on US. Swab positive for MSSA. Continue ceftriaxone, stop Clindamycin. Testing for STI pending. Denies new sexual contacts. (3) Dysphagia Current Visit: Yes Status: Acute Code(s): R13.10 - DYSPHAGIA, UNSPECIFIED SNOMED Code(s): 92905662 Comment: Resolved. CT negative for abscess. Clindamycin stopped. (4) Urinary tract infection Current Visit: Yes Status: Acute Comment: Grossly positive UA with 3+ LE and WBCs with negative culture. Could represent nephritis or urethritis. Continue ceftriaxone. FeNa pending. (5) Hypertension Current Visit: Yes Status: Acute Code(s): I10 - ESSENTIAL (PRIMARY) HYPERTENSION SNOMED Code(s): 99993832 Comment: Normotensive off medications. Hold amlodipine. (6) Acute kidney injury Current Visit: Yes Status: Acute Code(s): N17.9 - ACUTE KIDNEY FAILURE, UNSPECIFIED SNOMED Code(s): 42732492 Comment: Cret increased to 1.9 at admission. Improved with fluid but then worsened despite continued fluids. FeNa pending. Could represent Nephritis or urethritis from STI. Testing pending. Continue fluids. (7) Hypokalemia Current Visit: Yes Status: Acute Code(s): E87.6 - HYPOKALEMIA SNOMED Code( s): 95476522 Comment: 3.4, will replace and recheck. (8) Anemia Current Visit: Yes Status: Acute Code(s): D64.9 - ANEMIA, UNSPECIFIED SNOMED Code(s): 152219066 Comment: Microcytic, Iron panel pending. Worsening likely from dilution. Will monitor. (9) DVT prophylaxis Current Visit: Yes Status: Acute Code(s): LIQ7764 - SNOMED Code(s): 537004011 Comment: HSQ (10) Full code status Current Visit: Yes Status: Acute Code(s): Z78.9 - OTHER SPECIFIED HEALTH STATUS SNOMED Code(s): 961157246 Status and Disposition: Patient is admitted inpatient.
[2017-05-21] MEDS ORDERED: Potassium Chlor TAB* 20 MEQ TAB.ER PO ONE (18:39)
[2017-05-22] MEDS: NS 0.9% 1000 ML* 1,000 ML IV SCH ×2 (00:36→23:21)
--- NOTE | 2017-05-22 03:14 | CONS ---
CONSULTATION REPORT: DATE OF CONSULT: 05/21/17 REQUESTING PROVIDER: ROSSANA Groves. CONSULTING SERVICE: Infectious Disease. REASON FOR CONSULTATION: Groin abscess. IMPRESSION: 1. Week and half of fever, malaise, myalgia, negative influenza PCR, pharyngitis, urethritis, possibly nephritis, and right inguinal lymphadenitis. Broad differential diagnosis; I am unclear in that her creatinine is about 2, last measure we had in the computer in 2016 was 0.8. She is not prerenal by labs. She has protein, white cells and red cells in the urine. Starting with what looks to be a right inguinal lymphadenitis with some ulceration without genital or oral ulcers, any other findings, sexually transmitted infection including syphilis and acute HIV infection, consideration as of gonorrhea and chlamydia, lymphogranuloma venereum is also possibility. There may be more run of the mill explanation including progression of diabetic nephropathy, staphylococcal lymphadenitis, and soft tissue abscess, malignancy is a consideration as there is no infectious cause for her inguinal lymphadenopathy found. 2. Type 2 diabetes with hyperglycemia. 3. Hypertension. RECOMMENDATIONS: 1. Continue ceftriaxone, stop the clindamycin. Get an ultrasound of her right groin. 2. Syphilis IgG, HIV viral load, I took a swab of her pharynx and the right inguinal node ulceration with an Aptima probe for gonorrhea and chlamydia, we will check urine gonorrhea and Chlamydia. RNA level as well. 3. Check urine protein to creatinine ratio. HISTORY OF PRESENT ILLNESS: This 56-year-old woman who has been ill for about a week and in a hospital for 2 days. A week ago, she noticed fever, malaise, chills, decreased appetite, developed fairly severe sore throat pain with swallowing. She noted swelling in her right groin for the last few days as well which is tender to the touch. She has had some change in vaginal discharge. She has had dysuria, no frequency. She has had no joint pain or skin rashes that she can remember. She has had some fevers at home which is continued here. She came to the hospital with her . She has had no other partners. She had a CT of the abdomen and pelvis those revealing a chest x-ray that showed no acute abnormalities. Her CT of the neck without abscess or phlegmon. Her white blood cell count on admission was 15, at 17.5 today. CRP was 423 down to 350 the next morning. INR 1.3. Influenza PCR are negative. Swab of the pharynx negative for group A strep. Creatinine is 1.9. It was 1.94 on admission. BUN 36. Glucose 700 on admission. It was down to 300 today. Blood cultures are negative. Urine culture negative. The urinalysis did show leukocyte esterase white cells, red cells, and 2+ protein. A swab of right inguinal node ulceration was taken, Gram stain shows gram- positive cocci in clusters. Since she has been here she has felt a little bit better on ceftriaxone and clindamycin and IV fluids, still had some sore throat. She is eating a little bit more, she is urinating okay. The urinary irritation is a little bit better. The swelling of the groin she thinks it is decreasing slightly; it is still painful. She does not notice any other swollen lymph nodes elsewhere. PAST MEDICAL HISTORY: 1. Non-insulin dependent diabetes mellitus. 2. Hypertension. 3. Peripheral neuropathy. 4. Diabetic retinopathy. MEDICATIONS: 1. Tylenol. 2. Albuterol. 3. Benzocaine as needed. 4. Ceftriaxone 1 g a day. 5. Heparin subcutaneous injection. 6. Insulin lispro. 7. Lactobacillus. 8. Melatonin. 9. Omeprazole. 10. Phenazopyridine. 11. Prochlorperazine as needed. 12. Tramadol as needed. ALLERGIES: No known drug allergies. FAMILY HISTORY: Diabetes and hypertension . SOCIAL HISTORY: She lives in [place] with her . 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 No foreign travel. No sick contacts. No injection drugs. REVIEW OF SYSTEMS: A 14-point review of systems was negative as noted above. PHYSICAL EXAM: Vital Signs: Temperature 37.3, heart rate 110, respiratory rate 18, blood pressure 140/80, oxygen saturation 97% on room air. General: She is awake, drowsy, and not in distress. Neurologic: She is oriented x3. Follows all commands, answers all questions. Cranial nerves II through XII are intact. HEENT: There is no conjunctival hemorrhage. Oropharynx without lesions. Neck: Supple. Lymph Nodes: There is no cervical, supraclavicular, axillary, or epitrochlear lymphadenopathy. There is a large right inguinal lymph node, which is tender. It is mated and with a 3 mm ulceration with scant purulent drainage; adjacent to that there is 3 to 4 cm area of induration without fluctuance or crepitus. Heart is regular and tachycardic without murmurs. Lungs: Clear to auscultation bilaterally. Abdomen: Soft, nontender , nondistended. There are bowel sounds present. Skin: There is no rash or splinter hemorrhages. Musculoskeletal: There is no spine tenderness to palpation. Genitourinary: There is no external vaginal ulceration or discharge. DIAGNOSTIC STUDIES/LAB DATA: Creatinine 1.95, potassium 3.4, sodium 126. White blood cell count of 17, hemoglobin 8.8, MCV of 76, platelets 170. Please see impressions and recommendations outlined above which I discussed with ROSSANA Groves. Thanks for asking me to see Grady Jose in consultation. [id number]/CPS #: [id number] MTDD
[2017-05-22] MEDS: cefTRIAXone VIAL(*) 1,000 MG in D5W 50 ML BAG* 50 ML IVPB SCH (04:10)
[2017-05-22] MEDS: Omeprazole CAP* 20 MG PO SCH (05:28)
[2017-05-22] MEDS: Heparin VIAL(*) 5000 UNITS/ML VIAL (FIVE THOUSAND) SUBCUT SCH ×3 (05:28→22:05)
[2017-05-22 07:33] LABS: Hematocrit 28 % (35-47); Hemoglobin 9.2 g/dl (12.0-16.0); Mean Corpuscular HGB Conc 33 g/dl (31-36); Mean Corpuscular Hemoglobin 24 pg (27-31); Mean Corpuscular Volume 75 fL (80-97); Mean Platelet Volume 9 um3 (7.4-10.4); Platelet Count 172 10^3/ul (150-450); Red Blood Count 3.76 10^6/ul (4.0-5.4); Red Cell Distribution Width 15 % (10.5-15); White Blood Count 18.3 10^3/ul (3.5-10.8)
[2017-05-22 07:47] LABS: EGFR Non-African American 37.8 (>60)
[2017-05-22] MEDS ORDERED: Insulin GLARGINE(*) 1 UNITS UNIT SUBCUT SCH ×2 (08:00→21:00)
--- NOTE | 2017-05-22 08:58 | PN ---
Subjective Date of Service: 05/22/17 Interval History: Patient seen and examined. Ambulating with assistance to bathroom. States pain in groin/thigh very tender and makes is difficult to ambulate and sit. States fevers, no chills. Denies n/v, no headache, no chest pain, no SOB. Swallowing improved. Overall fatigue noted. Family History: Unchanged from Admission Social History: Unchanged from Admission Past Medical History: Unchanged from Admission Objective Active Medications: Acetaminophen (Tylenol Tab*) 650 mg PO Q6H PRN PRN Reason: FEVER/PAIN Last Admin: 05/21/17 23:14 Dose: 650 mg Albuterol (Ventolin 2.5 Mg/3 Ml Neb.Kathy*) 2.5 mg INH Q2H PRN PRN Reason: SOB/WHEEZING Dextrose (D50w Syringe 50 Ml*) 12.5 gm IV PUSH .FOR FS < 60 - SS PRN PRN Reason: FS < 60 Docusate Sodium (Colace Cap*) 200 mg PO BID [facility] Last Admin: 05/21/17 21:14 Dose: Not Given Heparin Sodium (Porcine) (Heparin Vial(*)) 5,000 units SUBCUT Q8HR [facility] Last Admin: 05/22/17 05:28 Dose: 5,000 units Sodium Chloride (Ns 0.9% 1000 Ml*) 1,000 mls @ 125 mls/hr IV PER RATE [facility] Last Admin: 05/22/17 00:36 Dose: 125 mls/hr Ceftriaxone Sodium 1,000 mg/ (Dextrose) 50 mls @ 200 mls/hr IVPB Q24H [facility] Last Admin: 05/22/17 04:10 Dose: 200 mls/hr Insulin Glargine (Lantus(*)) 10 units SUBCUT Q24H [facility] Insulin Human Lispro (Humalog*) 0 units SUBCUT AC [facility] PRN Reason: Protocol Last Admin: 05/21/17 18:00 Dose: 4 unit Insulin Human Lispro (Humalog*) 0 units SUBCUT ACHS [facility] PRN Reason: Protocol Last Admin: 05/21/17 21:16 Dose: 10 unit Lactobacillus Rhamnosus (Culturelle*) 1 cap PO DAILY [facility] Last Admin: 05/21/17 10:14 Dose: 1 cap Melatonin (Melatonin (Nf)) 3 mg PO BEDTIME PRN; Protocol PRN Reason: Sleep Omeprazole (Prilosec Cap*) 20 mg PO DAILY@0600 EFRAIN Last Admin: 05/22/17 05:28 Dose: Not Given Ondansetron HCl (Zofran Inj*) 4 mg IV Q6H PRN PRN Reason: NAUSEA Last Admin: 05/20/17 20:39 Dose: 4 mg Phenazopyridine HCl (Pyridium Tab*) 200 mg PO TID PRN PRN Reason: Dysuria Last Admin: 05/21/17 10:14 Dose: 200 mg Phenol/Menthol (Chloroseptic Throat [place]*) 1 spray MT TID PRN PRN Reason: SORE THROAT Last Admin: 05/20/17 17:46 Dose: 1 spray Prochlorperazine Edisylate (Compazine Inj*) 10 mg IV Q6H PRN PRN Reason: NAUSEA/VOMITING Last Admin: 05/21/17 02:22 Dose: 10 mg Throat Lozenges (Chloraseptic [place]*) 1 leodan PO Q6H PRN PRN Reason: SORE THROAT Last Admin: 05/20/17 15:26 Dose: 1 leodan Tramadol HCl (Ultram*) 50 mg PO Q6H PRN PRN Reason: PAIN Last Admin: 05/21/17 02:22 Dose: 50 mg Vital Signs - 8 hr 05/22/17 03:22 Temperature 98.8 F Pulse Rate 105 Respiratory 16 Rate Blood Pressure 144/78 (mmHg) O2 Sat by Pulse 93 Oximetry Oxygen Devices in Use Now: None Appearance: Alert, NAD Eyes: No Scleral Icterus, PERRLA Ears/Nose/Mouth/Throat: NL Teeth, Lips, Gums, Mucous Membranes Moist Neck: NL Appearance and Movements; NL JVP, Trachea Midline Respiratory: Symmetrical Chest Expansion and Respiratory Effort, Clear to Auscultation Cardiovascular: NL Sounds; No Murmurs; No JVD, No Edema Abdominal: NL Sounds; No Tenderness; No Distention Extremities: - - right alice and medial thigh with erythema, skin firm, no fluctuance noted Neurological: Alert and Oriented x 3, NL Sensation, NL Gait, NL Muscle Strength and Tone Nutrition: Taking PO's Result Diagrams: 05/22/17 07:21 05/22/17 07:21 Microbiology and Other Data: Microbiology 05/21/17 10:45 Skin and Soft Tissue MRSA/MSSA (PCR - Final Groin Right Mrsa Negative S.aureus Positive Gram Stain - Final 05/20/17 01:55 Urine Culture - Final Urine Diagnostic Imaging: Patient Name: MARBIN BECKMAN Medical Record#: [id number] Ordering Physician: Selvin TRACY Acct.#: [id number] : 1960 Age: 56 Sex: F Location: [address] [place] [address] MEDICAL Exam Date: 05/21/17 1613 ADM Status: ADM IN Order Information: US SOFT TISSUE LIMITED EXT-RT Accession Number: [id number] CPT: 16727 HISTORY: Abscess in left groin COMPARISONS: CT dated May 20, 2017 TECHNIQUE: Multiple transverse and longitudinal ultrasound images were obtained of the left inguinal region using grayscale and color Doppler imaging FINDINGS: Typically benign-appearing, reniform, hypoechoic lymph nodes with fatty jackie are noted measuring less than 1 cm in short axis. There is no lymphadenopathy by size criteria. The vasculature is grossly normal. There is subcutaneous edema. There is no loculated fluid collection to suggest abscess. IMPRESSION: SUBCUTANEOUS EDEMA, WITHOUT LOCULATED FLUID COLLECTION TO SUGGEST ABSCESS. <Electronically signed by Griffin Mcdonald MD in [place]> 05/21/171748 Dictated By: Griffin Mcdonald MD Dictated Date/Time: 05/21/171748 Transcribed Date/Time: 05/21/171746 Copy to: 1 of 1 Assess/Plan/Problems-Billing Assessment: This is a 56 year old female with PMHx of DMII/HTN that presented with hyperglycemia, UTI, dysphagia and right groin cellulitis. - Patient Problems (1) Cellulitis Code(s): L03.90 - CELLULITIS, UNSPECIFIED SNOMED Code(s): 413213361 Comment: - US as above, no appreciable abcess to be drained, however, if it becomes fluctuant, may repeat US - ID consult appreciated - Continue ceftriaxone, clindamycin DC, culture with MSSA - Testing for STI pending (2) Uncontrolled diabetes mellitus Code(s): E11.65 - TYPE 2 DIABETES MELLITUS WITH HYPERGLYCEMIA SNOMED Code(s): 974071125 Comment: - A1C=14.2, lantus started today, sugars >300 last 24h - Reinforce compliance with gycemic control - continue SSI - Should see endocrine after DC to home (3) Urinary tract infection Comment: - Continue ceftriaxone - Follow FeNa, culture negative (4) Acute kidney injury Code(s): N17.9 - ACUTE KIDNEY FAILURE, UNSPECIFIED SNOMED Code(s): 07757682 Comment: - Continue agressive hydration in setting of infection and UTI - Creatinine improving - May US kidneys if no improvment to r/o hydro (5) Dysphagia Code(s): R13.10 - DYSPHAGIA, UNSPECIFIED SNOMED Code(s): 35878956 Comment: - Resolved. CT negative for abscess. Clindamycin DC'd. (6) Anemia Code(s): D64.9 - ANEMIA, UNSPECIFIED SNOMED Code(s): 738036779 Comment: - Microcytic, likely exac by hemodilution fanny may be iron deficient - Asymptomatic, continue to monitor H&H (7) Hypertension Code(s): I10 - ESSENTIAL (PRIMARY) HYPERTENSION SNOMED Code(s): 87874437 Comment: - Normotensive off medications. Hold amlodipine. (8) Electrolyte and fluid disorder Code(s): E87.8 - OTH DISORDERS OF ELECTROLYTE AND FLUID BALANCE, NEC SNOMED Code(s): 16762209 Comment: - Continue to replete lytes, sodium slowly improving - Monitor labs (9) DVT prophylaxis Code(s): PER9827 - SNOMED Code(s): 852940363 Comment: - HSQ (10) Full code status Code(s): Z78.9 - OTHER SPECIFIED HEALTH STATUS SNOMED Code(s): 056807260 Comment: - Full code Status and Disposition: Remain inpatient for continued IV atbx and fluids.
[2017-05-22 09:24] LABS: Monocytes % 3 % (0-13)
[2017-05-22] MEDS: Docusate CAP* 100 MG PO SCH ×2 (09:54→21:16)
[2017-05-22] MEDS: Lactobacillus Acidophilu (GG)* 1 CAP CAP PO SCH (09:54)
[2017-05-22] MEDS: Insulin LISPRO* 1 UNITS UNIT SUBCUT SCH ×7 (09:56→22:04)
[2017-05-22] MEDS ORDERED: Insulin GLARGINE(*) 1 UNITS UNIT SUBCUT ONE (10:00)
[2017-05-22] MEDS: Acetaminophen TAB* 325 MG PO PRN ×2 (15:18→21:07)
[2017-05-22] MEDS: traMADol TAB* 50 MG PO PRN (23:25)
[2017-05-22] MEDS: Miconazole VAG.SUPP* 100 MG VAGINAL SCH (23:33)
[2017-05-23] MEDS: Acetaminophen TAB* 325 MG PO PRN ×3 (03:21→22:06)
[2017-05-23] MEDS: cefTRIAXone VIAL(*) 1,000 MG in D5W 50 ML BAG* 50 ML IVPB SCH (03:27)
[2017-05-23] MEDS: Omeprazole CAP* 20 MG PO SCH ×3 (05:26→13:54)
[2017-05-23] MEDS: Heparin VIAL(*) 5000 UNITS/ML VIAL (FIVE THOUSAND) SUBCUT SCH ×3 (05:26→22:09)
[2017-05-23] MEDS: traMADol TAB* 50 MG PO PRN ×3 (05:26→22:08)
[2017-05-23 06:10] LABS: ABS Basophils 0.1 10^3/ul (0-0.2); ABS Eosinophils 0.5 10^3/ul (0-0.6); ABS Lymphocytes 2.2 10^3/ul (1.0-4.8); ABS Monocytes 1.8 10^3/ul (0-0.8); ABS Neutrophils 13.4 10^3/ul (1.5-7.7); ABS Nucleated RBC 0 10^3/ul; Eosinophil % 2.7 % (0-6); Hematocrit 25 % (35-47); Hemoglobin 8.3 g/dl (12.0-16.0); Lymphocyte % 12.3 % (25-47); Mean Corpuscular HGB Conc 34 g/dl (31-36); Mean Corpuscular Hemoglobin 25 pg (27-31); Mean Corpuscular Volume 74 fL (80-97); Mean Platelet Volume 9 um3 (7.4-10.4); Nucleated Red Blood Cells % 0.2; Platelet Count 205 10^3/ul (150-450); Red Blood Count 3.34 10^6/ul (4.0-5.4); Red Cell Distribution Width 15 % (10.5-15)
[2017-05-23] MEDS: Lactobacillus Acidophilu (GG)* 1 CAP CAP PO SCH (10:17)
[2017-05-23] MEDS: Docusate CAP* 100 MG PO SCH ×2 (10:18→20:44)
[2017-05-23] MEDS: Insulin LISPRO* 1 UNITS UNIT SUBCUT SCH ×7 (10:18→20:44)
[2017-05-23] MEDS: Insulin GLARGINE(*) 1 UNITS UNIT SUBCUT SCH ×2 (10:20→20:44)
[2017-05-23] MEDS: NS 0.9% 1000 ML* 1,000 ML IV SCH ×2 (10:32→22:44)
[2017-05-23] MEDS ORDERED: Lidocaine 2.5%/Prilocain 2.5%* 5 GM TUBE TOPICAL ONE (15:37)
--- NOTE | 2017-05-23 18:21 | PN ---
Subjective Date of Service: 05/23/17 Interval History: Patient seen and examined. Afebrile, no chills, states skin on buttocks feels excoriated, had many loose stools that are improving. Using barrier cream. Pain in right groin/medial thigh improved. Denies n/v, no SOB, has body aches, chest wall pain and is fatigued. Throat pain improved. Family History: Unchanged from Admission Social History: Unchanged from Admission Past Medical History: Unchanged from Admission Objective Active Medications: Acetaminophen (Tylenol Tab*) 650 mg PO Q6H PRN PRN Reason: FEVER/PAIN Last Admin: 05/23/17 10:32 Dose: 650 mg Albuterol (Ventolin 2.5 Mg/3 Ml Neb.Kathy*) 2.5 mg INH Q2H PRN PRN Reason: SOB/WHEEZING Dextrose (D50w Syringe 50 Ml*) 12.5 gm IV PUSH .FOR FS < 60 - SS PRN PRN Reason: FS < 60 Docusate Sodium (Colace Cap*) 200 mg PO BID [facility] Last Admin: 05/23/17 10:18 Dose: 200 mg Heparin Sodium (Porcine) (Heparin Vial(*)) 5,000 units SUBCUT Q8HR [facility] Last Admin: 05/23/17 14:01 Dose: 5,000 units Sodium Chloride (Ns 0.9% 1000 Ml*) 1,000 mls @ 125 mls/hr IV PER RATE [facility] Last Admin: 05/23/17 10:32 Dose: 125 mls/hr Ceftriaxone Sodium 1,000 mg/ (Dextrose) 50 mls @ 200 mls/hr IVPB Q24H [facility] Last Admin: 05/23/17 03:27 Dose: 200 mls/hr Insulin Glargine (Lantus(*)) 15 units SUBCUT Q12H [facility] Last Admin: 05/23/17 10:20 Dose: 15 units Insulin Human Lispro (Humalog*) 0 units SUBCUT AC [facility] PRN Reason: Protocol Last Admin: 05/23/17 13:58 Dose: 6 unit Insulin Human Lispro (Humalog*) 0 units SUBCUT ACHS [facility] PRN Reason: Protocol Last Admin: 05/23/17 14:00 Dose: 8 unit Lactobacillus Rhamnosus (Culturelle*) 1 cap PO DAILY [facility] Last Admin: 05/23/17 10:17 Dose: 1 cap Melatonin (Melatonin (Nf)) 3 mg PO BEDTIME PRN; Protocol PRN Reason: Sleep Miconazole (Monistat7*) 100 mg VAGINAL BEDTIME [facility] Stop: 05/28/17 21:01 Last Admin: 05/22/17 23:33 Dose: 100 mg Omeprazole (Prilosec Cap*) 20 mg PO DAILY@0600 [facility] Last Admin: 05/23/17 13:54 Dose: 20 mg Ondansetron HCl (Zofran Inj*) 4 mg IV Q6H PRN PRN Reason: NAUSEA Last Admin: 05/20/17 20:39 Dose: 4 mg Phenazopyridine HCl (Pyridium Tab*) 200 mg PO TID PRN PRN Reason: Dysuria Last Admin: 05/21/17 10:14 Dose: 200 mg Phenol/Menthol (Chloroseptic Throat [place]*) 1 spray MT TID PRN PRN Reason: SORE THROAT Last Admin: 05/20/17 17:46 Dose: 1 spray Prochlorperazine Edisylate (Compazine Inj*) 10 mg IV Q6H PRN PRN Reason: NAUSEA/VOMITING Last Admin: 05/21/17 02:22 Dose: 10 mg Throat Lozenges (Chloraseptic [place]od[place]*) 1 leodan PO Q6H PRN PRN Reason: SORE THROAT Last Admin: 05/20/17 15:26 Dose: 1 leodan Tramadol HCl (Ultram*) 50 mg PO Q6H PRN PRN Reason: PAIN Last Admin: 05/23/17 13:55 Dose: 50 mg Vital Signs - 8 hr 05/23/17 05/23/17 13:55 16:39 Temperature 98.9 F Pulse Rate 103 Respiratory 18 20 Rate Blood Pressure 158/86 (mmHg) O2 Sat by Pulse 94 Oximetry Oxygen Devices in Use Now: None Appearance: Alert, NAD Ears/Nose/Mouth/Throat: NL Teeth, Lips, Gums, Mucous Membranes Moist Neck: Trachea Midline Respiratory: Symmetrical Chest Expansion and Respiratory Effort, Clear to Auscultation Cardiovascular: NL Sounds; No Murmurs; No JVD, RRR Abdominal: - - Slight distension Extremities: No Edema Skin: - - erythema to right thigh improved, remains diffusely firm, no fluctuance or nodularity noted Neurological: Alert and Oriented x 3 Nutrition: Taking PO's Result Diagrams: 02/11/18 05:14 05/22/17 07:21 Microbiology and Other Data: Microbiology 05/21/17 10:45 Skin and Soft Tissue MRSA/MSSA (PCR - Final Groin Right Mrsa Negative S.aureus Positive Gram Stain - Final 05/20/17 01:55 Urine Culture - Final Urine Diagnostic Imaging: Patient Name: MARBIN BECKMAN Medical Record#: [id number] Ordering Physician: Selvin TRACY Acct.#: [id number] : 1960 Age: 56 Sex: F Location: [address] [place] [address] - MEDICAL Exam Date: 05/21/17 1613 ADM Status: ADM IN Order Information: US SOFT TISSUE LIMITED EXT-RT Accession Number: [id number] CPT: 75480 HISTORY: Abscess in left groin COMPARISONS: CT dated May 20, 2017 TECHNIQUE: Multiple transverse and longitudinal ultrasound images were obtained of the left inguinal region using grayscale and color Doppler imaging FINDINGS: Typically benign-appearing, reniform, hypoechoic lymph nodes with fatty jackie are noted measuring less than 1 cm in short axis. There is no lymphadenopathy by size criteria. The vasculature is grossly normal. There is subcutaneous edema. There is no loculated fluid collection to suggest abscess. IMPRESSION: SUBCUTANEOUS EDEMA, WITHOUT LOCULATED FLUID COLLECTION TO SUGGEST ABSCESS. <Electronically signed by Griffin Mcdonald MD in [place]> 05/21/171748 Dictated By: Griffin Mcdonald MD Dictated Date/Time: 05/21/171748 Transcribed Date/Time: 05/21/171746 Copy to: 1 of 1 Assess/Plan/Problems-Billing Assessment: This is a 56 year old female with PMHx of DMII/HTN that presented with hyperglycemia, UTI, dysphagia and right groin cellulitis. - Patient Problems (1) Cellulitis Code(s): L03.90 - CELLULITIS, UNSPECIFIED SNOMED Code(s): 124904807 Comment: - US as above, no appreciable abcess to be drained, appears to be clinically improving - ID following - Continue ceftriaxone, clindamycin DC, culture with MSSA - Testing for STI pending, call to lab, krunal wednesday (2) Uncontrolled diabetes mellitus Code(s): E11.65 - TYPE 2 DIABETES MELLITUS WITH HYPERGLYCEMIA SNOMED Code(s): 481370111 Comment: - A1C=14.2, sugars remain 200s-300, likley r/t acute infection - Increased lantus to 15units BID - Reinforce compliance with gycemic control - continue SSI - Should see endocrine after DC to home (3) Urinary tract infection Comment: - Continue ceftriaxone - Follow FeNa, culture negative (4) Acute kidney injury Code(s): N17.9 - ACUTE KIDNEY FAILURE, UNSPECIFIED SNOMED Code(s): 61055161 Comment: - Continue agressive hydration in setting of infection and UTI - Creatinine improving - May US kidneys if no improvment to r/o hydro - concern for nephritis or urethritis from potential STI? follow cultures (5) Dysphagia Code(s): R13.10 - DYSPHAGIA, UNSPECIFIED SNOMED Code(s): 59173609 Comment: - Resolved. CT negative for abscess. Clindamycin DC'd. (6) Anemia Code(s): D64.9 - ANEMIA, UNSPECIFIED SNOMED Code(s): 605407254 Comment: - Microcytic, likely exac by hemodilution fanny may be iron deficient - Asymptomatic, continue to monitor H&H, HgB 8.3 today (7) Hypertension Code(s): I10 - ESSENTIAL (PRIMARY) HYPERTENSION SNOMED Code(s): 17881372 Comment: - Normotensive off medications. Hold amlodipine. (8) Electrolyte and fluid disorder Code(s): E87.8 - OTH DISORDERS OF ELECTROLYTE AND FLUID BALANCE, NEC SNOMED Code(s): 54695212 Comment: - Continue to replete lytes, sodium slowly improving - check BMP in AM (9) DVT prophylaxis Code(s): NEV4905 - SNOMED Code(s): 357073311 Comment: - HSQ (10) Full code status Code(s): Z78.9 - OTHER SPECIFIED HEALTH STATUS SNOMED Code(s): 206985157 Comment: - Full code Status and Disposition: Remain inpatient for continued IV atbx and fluids.
[2017-05-23] MEDS: Miconazole VAG.SUPP* 100 MG VAGINAL SCH (20:45)
[2017-05-24] MEDS: Acetaminophen TAB* 325 MG PO PRN ×2 (00:47→08:35)
[2017-05-24] MEDS: cefTRIAXone VIAL(*) 1,000 MG in D5W 50 ML BAG* 50 ML IVPB SCH (04:05)
[2017-05-24] MEDS: Heparin VIAL(*) 5000 UNITS/ML VIAL (FIVE THOUSAND) SUBCUT SCH ×3 (05:16→22:20)
[2017-05-24] MEDS: Omeprazole CAP* 20 MG PO SCH (05:16)
[2017-05-24] MEDS: traMADol TAB* 50 MG PO PRN ×2 (05:26→20:42)
[2017-05-24] MEDS: Insulin GLARGINE(*) 1 UNITS UNIT SUBCUT SCH ×3 (08:15→20:41)
[2017-05-24 08:32] LABS: EGFR Non-African American 69.9 (>60)
[2017-05-24] MEDS: Docusate CAP* 100 MG PO SCH ×2 (08:35→20:41)
[2017-05-24] MEDS: Lactobacillus Acidophilu (GG)* 1 CAP CAP PO SCH (08:36)
[2017-05-24] MEDS: NS 0.9% 1000 ML* 1,000 ML IV SCH ×2 (08:48→19:53)
[2017-05-24] MEDS: Insulin LISPRO* 1 UNITS UNIT SUBCUT SCH ×7 (09:32→22:30)
--- NOTE | 2017-05-24 10:51 | PN ---
Progress Note - Progress Note Date of Service: 05/24/17 SOAP: Subjective: CC: lymphadenopathy HPI: 56 year old diabetic woman with anorexia, fever, right groin swelling and pain; over the weekend her appetite returned, she is out of bed today walking around her room. Her right groin is less painful. No fever, rash, or diarrhea. Objective: Vital Signs Temp 37.3 C 05/24/17 07:55 Pulse 102 05/24/17 07:55 Resp 18 05/24/17 08:10 BP 160/89 05/24/17 07:55 Pulse Ox 95 05/24/17 07:55 Intake & Output 05/23/17 05/24/17 05/24/17 18:59 06:59 18:59 Intake Total 800 0 50 Output Total 0 Balance 800 0 50 Intake: IVPB 50 ABX - CEFTRIAXONE 50 Oral 800 0 Output: Urine 0 Other: Estimated Void Medium Large # Bowel Movements 0 # Voids 2 3 Gen:awake, no distress Neuro:Ox3, moves all extremities HEENT: no thrush or OHL Heart:RRR no murmur Lungs:CTA Abd:+BS NTND soft Skin: no rash MSK: 5 x5 cm are induration right prox thigh; mild warmth, no erythema LN: <1cm R inguinal node, mobile firm Laboratory Results - last 24 hr 05/21/17 05/23/17 05/23/17 15:20 12:20 17:33 Sodium Potassium Chloride Carbon Dioxide Anion Gap BUN Creatinine Est GFR ( Amer) Est GFR (Non-Af Amer) BUN/Creatinine Ratio Glucose POC Glucose (mg/dL) 323 H 222 H Calcium C.trachomatis RNA TNP N.gonorrhoeae RNA TNP 05/23/17 05/24/17 05/24/17 20:32 07:36 08:26 Sodium 132 L Potassium 3.4 L Chloride 101 Carbon Dioxide 23 Anion Gap 8 BUN 11 Creatinine 0.84 Est GFR ( Amer) 89.9 Est GFR (Non-Af Amer) 69.9 BUN/Creatinine Ratio 13.1 Glucose 180 H POC Glucose (mg/dL) 248 H 173 H Calcium 8.1 L C.trachomatis RNA N.gonorrhoeae RNA Assessment: 1. fever, pharyngitis, urethritis, CROW, all resolved 2. R inguinal mass with lymphadenitis ?early abscess 3. diabetes with hyperglycemia 4. acute kidney injury, resolved ?pre-renal Plan: 1. continue ceftriaxone 1 gm daily, await other infectious workup, CT right prox thigh Discussed with Carolyn Palencia NP and the patient's sister who is an mat inspector
[2017-05-24] MEDS ORDERED: Iodixanol* (CONTRAST) 320 MG/ML 100 ML SDV IV SCH (11:24)
[2017-05-24] MEDS ORDERED: Potassium Chlor TAB* 20 MEQ TAB.ER PO ONE (11:44)
--- NOTE | 2017-05-24 11:55 | PN ---
Subjective Date of Service: 05/24/17 Interval History: Patient seen and examined. No acute overnight events. Patient feeling better other than headache. Groin and thigh pain improved. No urinary complaints, no diarrhea. Family History: Unchanged from Admission Social History: Unchanged from Admission Past Medical History: Unchanged from Admission Objective Active Medications: Acetaminophen (Tylenol Tab*) 650 mg PO Q6H PRN PRN Reason: FEVER/PAIN Last Admin: 05/24/17 08:35 Dose: 650 mg Albuterol (Ventolin 2.5 Mg/3 Ml Neb.Kathy*) 2.5 mg INH Q2H PRN PRN Reason: SOB/WHEEZING Dextrose (D50w Syringe 50 Ml*) 12.5 gm IV PUSH .FOR FS < 60 - SS PRN PRN Reason: FS < 60 Docusate Sodium (Colace Cap*) 200 mg PO BID [facility] Last Admin: 05/24/17 08:35 Dose: 200 mg Heparin Sodium (Porcine) (Heparin Vial(*)) 5,000 units SUBCUT Q8HR [facility] Last Admin: 05/24/17 05:16 Dose: 5,000 units Sodium Chloride (Ns 0.9% 1000 Ml*) 1,000 mls @ 125 mls/hr IV PER RATE [facility] Last Admin: 05/24/17 08:48 Dose: 125 mls/hr Ceftriaxone Sodium 1,000 mg/ (Dextrose) 50 mls @ 200 mls/hr IVPB Q24H [facility] Last Admin: 05/24/17 04:05 Dose: 200 mls/hr Insulin Glargine (Lantus(*)) 20 units SUBCUT Q12H [facility] Last Admin: 05/24/17 09:35 Dose: 20 units Insulin Human Lispro (Humalog*) 0 units SUBCUT AC [facility] PRN Reason: Protocol Last Admin: 05/24/17 09:32 Dose: 3 unit Insulin Human Lispro (Humalog*) 0 units SUBCUT ACHS [facility] PRN Reason: Protocol Last Admin: 05/24/17 09:34 Dose: 2 unit Iodixanol (Visipaque* 320 (Contrast)) 100 ml IV ONCE [facility] Stop: 05/26/17 11:23 Lactobacillus Rhamnosus (Culturelle*) 1 cap PO DAILY [facility] Last Admin: 05/24/17 08:36 Dose: 1 cap Melatonin (Melatonin (Nf)) 3 mg PO BEDTIME PRN; Protocol PRN Reason: Sleep Miconazole (Monistat7*) 100 mg VAGINAL BEDTIME [facility] Stop: 05/28/17 21:01 Last Admin: 05/23/17 20:45 Dose: 100 mg Omeprazole (Prilosec Cap*) 20 mg PO DAILY@0600 [facility] Last Admin: 05/24/17 05:16 Dose: 20 mg Ondansetron HCl (Zofran Inj*) 4 mg IV Q6H PRN PRN Reason: NAUSEA Last Admin: 05/20/17 20:39 Dose: 4 mg Phenazopyridine HCl (Pyridium Tab*) 200 mg PO TID PRN PRN Reason: Dysuria Last Admin: 05/21/17 10:14 Dose: 200 mg Phenol/Menthol (Chloroseptic Throat [place]*) 1 spray MT TID PRN PRN Reason: SORE THROAT Last Admin: 05/20/17 17:46 Dose: 1 spray Potassium Chloride (Klor Con Er Tab*) 40 meq PO ONCE ONE Stop: 05/24/17 11:45 Prochlorperazine Edisylate (Compazine Inj*) 10 mg IV Q6H PRN PRN Reason: NAUSEA/VOMITING Last Admin: 05/21/17 02:22 Dose: 10 mg Throat Lozenges (Chloraseptic [place]*) 1 leodan PO Q6H PRN PRN Reason: SORE THROAT Last Admin: 05/20/17 15:26 Dose: 1 leodan Tramadol HCl (Ultram*) 50 mg PO Q6H PRN PRN Reason: PAIN Last Admin: 05/24/17 05:26 Dose: 50 mg Vital Signs - 8 hr 05/24/17 05/24/17 05/24/17 05:26 07:45 07:55 Temperature 99.2 F Pulse Rate 102 Respiratory 16 18 Rate Blood Pressure 160/89 (mmHg) O2 Sat by Pulse 95 Oximetry 05/24/17 05/24/17 08:02 08:10 Temperature Pulse Rate Respiratory 18 18 Rate Blood Pressure (mmHg) O2 Sat by Pulse Oximetry Oxygen Devices in Use Now: None Appearance: Well appearing, NAD Eyes: No Scleral Icterus, PERRLA Ears/Nose/Mouth/Throat: NL Teeth, Lips, Gums, Mucous Membranes Moist Neck: NL Appearance and Movements; NL JVP, Trachea Midline Respiratory: Symmetrical Chest Expansion and Respiratory Effort, Clear to Auscultation Cardiovascular: NL Sounds; No Murmurs; No JVD, RRR Abdominal: NL Sounds; No Tenderness; No Distention Extremities: - - erythema improved right medial thigh, small possibly indurated area Neurological: Alert and Oriented x 3, NL Gait, NL Muscle Strength and Tone Nutrition: Taking PO's Result Diagrams: 05/23/17 05:14 05/24/17 07:36 Microbiology and Other Data: Microbiology 05/21/17 10:45 Skin and Soft Tissue MRSA/MSSA (PCR - Final Groin Right Mrsa Negative S.aureus Positive Gram Stain - Final 05/20/17 01:55 Urine Culture - Final Urine Diagnostic Imaging: Patient Name: MARBIN BECKMAN Medical Record#: [id number] Ordering Physician: Selvin TRACY Acct.#: [id number] : 1960 Age: 56 Sex: F Location: [address] [place] [address] - MEDICAL Exam Date: 05/21/17 1613 ADM Status: ADM IN Order Information: US SOFT TISSUE LIMITED EXT-RT Accession Number: [id number] CPT: 46942 HISTORY: Abscess in left groin COMPARISONS: CT dated May 20, 2017 TECHNIQUE: Multiple transverse and longitudinal ultrasound images were obtained of the left inguinal region using grayscale and color Doppler imaging FINDINGS: Typically benign-appearing, reniform, hypoechoic lymph nodes with fatty jackie are noted measuring less than 1 cm in short axis. There is no lymphadenopathy by size criteria. The vasculature is grossly normal. There is subcutaneous edema. There is no loculated fluid collection to suggest abscess. IMPRESSION: SUBCUTANEOUS EDEMA, WITHOUT LOCULATED FLUID COLLECTION TO SUGGEST ABSCESS. <Electronically signed by Griffin Mcdonald MD in [facility]> 05/21/171748 Dictated By: Griffin Mcdonald MD Dictated Date/Time: 05/21/171748 Transcribed Date/Time: 05/21/171746 Copy to: Assess/Plan/Problems-Billing Assessment: This is a 56 year old female with PMHx of DMII/HTN that presented with hyperglycemia, UTI, dysphagia and right groin cellulitis of unclear etiology. - Patient Problems (1) Cellulitis Code(s): L03.90 - CELLULITIS, UNSPECIFIED SNOMED Code(s): 314106423 Comment: - US as above, no appreciable abcess to be drained, however, per Dr. Montejo, will CT scan today, there is one small area of possible induration that we can evaluate - Creatinine normal today, recommend fluids post-CT - Continue ceftriaxone to cover UTI , culture with MSSA - Testing for STI pending, call to lab, likely wednesday (2) Uncontrolled diabetes mellitus Code(s): E11.65 - TYPE 2 DIABETES MELLITUS WITH HYPERGLYCEMIA SNOMED Code(s): 989307602 Comment: - A1C=14.2, sugars with modest improvement, last BG 173 - Increased lantus to 20 units BID today - Reinforce compliance with gycemic control - continue SSI - Should see endocrine after DC to home (3) Urinary tract infection Comment: - Continue ceftriaxone - Follow FeNa, culture negative (4) Acute kidney injury Code(s): N17.9 - ACUTE KIDNEY FAILURE, UNSPECIFIED SNOMED Code(s): 51325255 Comment: - Creatinine at baseline/normal, fluids after CT (5) Dysphagia Code(s): R13.10 - DYSPHAGIA, UNSPECIFIED SNOMED Code(s): 42773209 Comment: - Resolved. CT negative for abscess. Clindamycin DC'd. (6) Anemia Code(s): D64.9 - ANEMIA, UNSPECIFIED SNOMED Code(s): 291280340 Comment: - Microcytic, likely exac by hemodilution fanny may be iron deficient - Asymptomatic, continue to monitor H&H, HgB 8.3 today (7) Hypertension Code(s): I10 - ESSENTIAL (PRIMARY) HYPERTENSION SNOMED Code(s): 20857604 Comment: - Normotensive off medications. Hold amlodipine. (8) Electrolyte and fluid disorder Code(s): E87.8 - OTH DISORDERS OF ELECTROLYTE AND FLUID BALANCE, NEC SNOMED Code(s): 01499628 Comment: - Continue to replete lytes, sodium slowly improving - One dose 40mEq K today - Continue to monitor (9) DVT prophylaxis Code(s): ELE8281 - SNOMED Code(s): 930079892 Comment: - HSQ (10) Full code status Code(s): Z78.9 - OTHER SPECIFIED HEALTH STATUS SNOMED Code(s): 011113676 Comment: - Full code Status and Disposition: Remain inpatient for continued IV atbx and fluids. Counseling and/or Coordination of Care Minutes: Coordinated with Dr. Montejo
--- NOTE | 2017-05-24 12:44 | RAD ---
Indication: Right proximal thigh mass versus abscess. Contrast: Administered 100.1 ml of VISIPAQUE 320 mg/ml CT of the right proximal thigh was performed after IV contrast administration. Coronal and sagittal reconstructed images were obtained. Diffuse subcutaneous edema of the upper thigh is noted. No evidence of abnormal fluid collections to suggest abscess is noted. No evidence of thrombosis of the veins are noted. The femoral artery is grossly unremarkable. IMPRESSION: No abscess is noted. Diffuse subcutaneous edema of the proximal thigh is noted.
[2017-05-24] MEDS: Miconazole VAG.SUPP* 100 MG VAGINAL SCH (20:44)
[2017-05-24] MEDS: Polyethylene Glycol 3350* 17 GM PACKET PO PRN (22:25)
[2017-05-24] MEDS: Senna TAB PO PRN (22:25)
[2017-05-25] MEDS: Acetaminophen TAB* 325 MG PO PRN ×3 (00:23→22:55)
[2017-05-25] MEDS: traMADol TAB* 50 MG PO PRN ×2 (03:16→20:10)
[2017-05-25] MEDS: cefTRIAXone VIAL(*) 1,000 MG in D5W 50 ML BAG* 50 ML IVPB SCH (03:56)
[2017-05-25] MEDS: NS 0.9% 1000 ML* 1,000 ML IV SCH (03:57)
[2017-05-25] MEDS: Omeprazole CAP* 20 MG PO SCH (05:55)
[2017-05-25] MEDS: Heparin VIAL(*) 5000 UNITS/ML VIAL (FIVE THOUSAND) SUBCUT SCH ×3 (05:55→21:48)
[2017-05-25 08:52] LABS: ABS Basophils 0.2 10^3/ul (0-0.2); ABS Eosinophils 0.4 10^3/ul (0-0.6); ABS Lymphocytes 2.2 10^3/ul (1.0-4.8); ABS Monocytes 1.4 10^3/ul (0-0.8); ABS Neutrophils 11.6 10^3/ul (1.5-7.7); ABS Nucleated RBC 0 10^3/ul; Eosinophil % 2.5 % (0-6); Hematocrit 24 % (35-47); Mean Corpuscular HGB Conc 33 g/dl (31-36); Mean Corpuscular Hemoglobin 25 pg (27-31); Mean Corpuscular Volume 74 fL (80-97); Mean Platelet Volume 8 um3 (7.4-10.4); Nucleated Red Blood Cells % 0.1; Platelet Count 286 10^3/ul (150-450); Red Blood Count 3.28 10^6/ul (4.0-5.4); Red Cell Distribution Width 14 % (10.5-15); White Blood Count 15.8 10^3/ul (3.5-10.8)
[2017-05-25] MEDS: Senna TAB PO PRN ×2 (08:52→20:10)
[2017-05-25] MEDS: Polyethylene Glycol 3350* 17 GM PACKET PO PRN (08:52)
[2017-05-25] MEDS: amLODIPine TAB* 5 MG PO SCH (08:53)
[2017-05-25] MEDS: Docusate CAP* 100 MG PO SCH ×2 (08:53→20:10)
[2017-05-25] MEDS: Lactobacillus Acidophilu (GG)* 1 CAP CAP PO SCH (08:53)
[2017-05-25] MEDS: Insulin LISPRO* 1 UNITS UNIT SUBCUT SCH ×7 (08:55→22:56)
[2017-05-25] MEDS: Insulin GLARGINE(*) 1 UNITS UNIT SUBCUT SCH ×2 (08:55→20:11)
[2017-05-25 08:59] LABS: EGFR Non-African American 70.9 (>60)
[2017-05-25] MEDS ORDERED: amLODIPine TAB* 5 MG PO SCH (09:00)
[2017-05-25] MEDS ORDERED: Potassium Chlor TAB* 20 MEQ TAB.ER PO ONE (09:34)
[2017-05-25] MEDS ORDERED: ALPRAZolam TAB* 0.25 MG PO PRN (14:31)
[2017-05-25] MEDS ORDERED: Simethicone LIQ* 40 MG/0.6 ML UD ORAL SYRINGE PO PRN (14:32)
[2017-05-25] MEDS ORDERED: Metoprolol Tartrate IV* 1 MG/ML 5 ML VIAL IV PRN (14:33)
[2017-05-25] MEDS ORDERED: Simethicone TAB* 80 MG TAB.CHEW PO PRN (14:55)
--- NOTE | 2017-05-25 15:51 | PN ---
Subjective Date of Service: 05/25/17 Interval History: Patient seen and examined. Complaining still of abdominal bloating. Discussed her CA125 result which is NOT elevated and that CT scan at admission was negative for acute process. Patient has complaints of general malaise and aches but mostly non-specific. Denies SOB, no chest pain, some neck/headache pain relieved with tylenol and cold pack, no n/v/d. Denies anxiety but appears very anxious. Family History: Unchanged from Admission Social History: Unchanged from Admission Past Medical History: Unchanged from Admission Objective Active Medications: Acetaminophen (Tylenol Tab*) 650 mg PO Q6H PRN PRN Reason: FEVER/PAIN Last Admin: 05/25/17 14:56 Dose: 650 mg Albuterol (Ventolin 2.5 Mg/3 Ml Neb.Kathy*) 2.5 mg INH Q2H PRN PRN Reason: SOB/WHEEZING Alprazolam (Xanax Tab*) 0.25 mg PO Q8H PRN PRN Reason: ANXIETY Amlodipine Besylate (Norvasc Tab*) 10 mg PO DAILY [facility] Last Admin: 05/25/17 08:53 Dose: 10 mg Dextrose (D50w Syringe 50 Ml*) 12.5 gm IV PUSH .FOR FS < 60 - SS PRN PRN Reason: FS < 60 Docusate Sodium (Colace Cap*) 200 mg PO BID [facility] Last Admin: 05/25/17 08:53 Dose: 200 mg Heparin Sodium (Porcine) (Heparin Vial(*)) 5,000 units SUBCUT Q8HR [facility] Last Admin: 05/25/17 12:51 Dose: 5,000 units Ceftriaxone Sodium 1,000 mg/ (Dextrose) 50 mls @ 200 mls/hr IVPB Q24H [facility] Last Admin: 05/25/17 03:56 Dose: 200 mls/hr Insulin Glargine (Lantus(*)) 20 units SUBCUT Q12H [facility] Last Admin: 05/25/17 08:55 Dose: 20 units Insulin Human Lispro (Humalog*) 0 units SUBCUT AC [facility] PRN Reason: Protocol Last Admin: 05/25/17 12:49 Dose: 3 unit Insulin Human Lispro (Humalog*) 0 units SUBCUT ACHS [facility] PRN Reason: Protocol Last Admin: 05/25/17 12:50 Dose: 2 unit Iodixanol (Visipaque* 320 (Contrast)) 100 ml IV ONCE [facility] Stop: 05/26/17 11:23 Last Admin: 05/24/17 11:57 Dose: 100 ml Lactobacillus Rhamnosus (Culturelle*) 1 cap PO DAILY [facility] Last Admin: 05/25/17 08:53 Dose: 1 cap Melatonin (Melatonin (Nf)) 3 mg PO BEDTIME PRN; Protocol PRN Reason: Sleep Metoprolol Tartrate (Lopressor Iv*) 5 mg IV Q6H PRN PRN Reason: BLOOD PRESSURE Last Admin: 05/25/17 14:56 Dose: 5 mg Miconazole (Monistat7*) 100 mg VAGINAL BEDTIME [facility] Stop: 05/28/17 21:01 Last Admin: 05/24/17 20:44 Dose: 100 mg Omeprazole (Prilosec Cap*) 20 mg PO DAILY@0600 [facility] Last Admin: 05/25/17 05:55 Dose: 20 mg Ondansetron HCl (Zofran Inj*) 4 mg IV Q6H PRN PRN Reason: NAUSEA Last Admin: 05/20/17 20:39 Dose: 4 mg Phenazopyridine HCl (Pyridium Tab*) 200 mg PO TID PRN PRN Reason: Dysuria Last Admin: 05/21/17 10:14 Dose: 200 mg Phenol/Menthol (Chloroseptic Throat [place]*) 1 spray MT TID PRN PRN Reason: SORE THROAT Last Admin: 05/20/17 17:46 Dose: 1 spray Polyethylene Glycol/Electrolytes (Miralax*) 17 gm PO DAILY PRN PRN Reason: CONSTIPATION Last Admin: 05/25/17 08:52 Dose: 17 gm Prochlorperazine Edisylate (Compazine Inj*) 10 mg IV Q6H PRN PRN Reason: NAUSEA/VOMITING Last Admin: 05/21/17 02:22 Dose: 10 mg Senna (Senokot Tab*) 2 tab PO BEDTIME PRN PRN Reason: CONSTIPATION Last Admin: 05/25/17 08:52 Dose: 2 tab Simethicone (Mylicon Tab*) 80 mg PO BID PRN PRN Reason: INDIGESTION Throat Lozenges (Chloraseptic Leodan*) 1 leodan PO Q6H PRN PRN Reason: SORE THROAT Last Admin: 05/20/17 15:26 Dose: 1 leodan Tramadol HCl (Ultram*) 50 mg PO Q6H PRN PRN Reason: PAIN Last Admin: 05/25/17 03:16 Dose: 50 mg Vital Signs - 8 hr 05/25/17 05/25/17 05/25/17 08:00 08:17 14:22 Pulse Rate 99 Respiratory 17 17 Rate Blood Pressure 172/93 (mmHg) O2 Sat by Pulse 96 Oximetry Oxygen Devices in Use Now: None Appearance: Alert, anxious Ears/Nose/Mouth/Throat: NL Teeth, Lips, Gums, Mucous Membranes Moist Neck: Trachea Midline Respiratory: Symmetrical Chest Expansion and Respiratory Effort, Clear to Auscultation Cardiovascular: NL Sounds; No Murmurs; No JVD Abdominal: - - soft, non-tender, mildly distended with hyperactive BS Extremities: No Edema, No Clubbing, Cyanosis Skin: No Rash or Ulcers Neurological: Alert and Oriented x 3, NL Gait Nutrition: Taking PO's Result Diagrams: 05/25/17 08:19 05/25/17 08:19 Microbiology and Other Data: Microbiology 05/21/17 10:45 Skin and Soft Tissue MRSA/MSSA (PCR - Final Groin Right Mrsa Negative S.aureus Positive Gram Stain - Final 05/20/17 01:55 Urine Culture - Final Urine Diagnostic Imaging: Patient Name: MARBIN BECKMAN Medical Record#: [id number] Ordering Physician: Selvin TRACY Acct.#: [id number] : 1960 Age: 56 Sex: F Location: [address] [place] [address] - MEDICAL Exam Date: 05/21/17 1613 ADM Status: ADM IN Order Information: US SOFT TISSUE LIMITED EXT-RT Accession Number: [id number] CPT: 35561 HISTORY: Abscess in left groin COMPARISONS: CT dated May 20, 2017 TECHNIQUE: Multiple transverse and longitudinal ultrasound images were obtained of the left inguinal region using grayscale and color Doppler imaging FINDINGS: Typically benign-appearing, reniform, hypoechoic lymph nodes with fatty jackie are noted measuring less than 1 cm in short axis. There is no lymphadenopathy by size criteria. The vasculature is grossly normal. There is subcutaneous edema. There is no loculated fluid collection to suggest abscess. IMPRESSION: SUBCUTANEOUS EDEMA, WITHOUT LOCULATED FLUID COLLECTION TO SUGGEST ABSCESS. <Electronically signed by Griffin Mcdonald MD in OV> 05/21/171748 Dictated By: Griffin Mcdonald MD Dictated Date/Time: 05/21/171748 Transcribed Date/Time: 05/21/171746 Copy to: 1 of 1 Assess/Plan/Problems-Billing Assessment: This is a 56 year old female with PMHx of DMII/HTN that presented with hyperglycemia, UTI, dysphagia and right groin cellulitis of unclear etiology. - Patient Problems (1) Cellulitis Code(s): L03.90 - CELLULITIS, UNSPECIFIED SNOMED Code(s): 203588394 Comment: - US and CT scans negative, no abscess to drain - Cultures negative to date - MSSA per swab - CA 125 negative at 14.5 - Continue ceftriaxone - ID following - Afebrile (2) Uncontrolled diabetes mellitus Code(s): E11.65 - TYPE 2 DIABETES MELLITUS WITH HYPERGLYCEMIA SNOMED Code(s): 024696505 Comment: - A1C=14.2 - Continue lantus to 20 units BID - continue SSI - Should see endocrine after DC to home (3) Urinary tract infection Comment: - Continue ceftriaxone - Follow FeNa, culture remains negative (4) Acute kidney injury Code(s): N17.9 - ACUTE KIDNEY FAILURE, UNSPECIFIED SNOMED Code(s): 92968180 Comment: - Creatinine at baseline/normal - IVF DCd (5) Dysphagia Code(s): R13.10 - DYSPHAGIA, UNSPECIFIED SNOMED Code(s): 22087510 Comment: - Resolved. CT negative for abscess. Clindamycin DC'd. (6) Anemia Code(s): D64.9 - ANEMIA, UNSPECIFIED SNOMED Code(s): 872253396 Comment: - Microcytic, likely exac by hemodilution fanny may be iron deficient - Asymptomatic, continue to monitor H&H, HgB 8.3 today (7) Hypertension Code(s): I10 - ESSENTIAL (PRIMARY) HYPERTENSION SNOMED Code(s): 74882329 Comment: - Amlodipine restarted - Lopressor IV PRN - Will place back on metoprolol for DC (8) Electrolyte and fluid disorder Code(s): E87.8 - OTH DISORDERS OF ELECTROLYTE AND FLUID BALANCE, NEC SNOMED Code(s): 43345515 Comment: - Continue to replete lytes, sodium slowly improving - Additional dose 40mEq K today, K=3.4 again - Continue to monitor (9) DVT prophylaxis Code(s): KKV8175 - SNOMED Code(s): 740704409 Comment: - HSQ (10) Full code status Code(s): Z78.9 - OTHER SPECIFIED HEALTH STATUS SNOMED Code(s): 633535548 Comment: - Full code (11) Constipation Code(s): K59.00 - CONSTIPATION, UNSPECIFIED SNOMED Code(s): 82433907 Comment: - Hyperactive BS with bloating, likley r/t tramadol and immobility, no nausea - Continue bowel regimen, Simethicone and miralax - Encourage ambulation Status and Disposition: Likely DC to home tomorrow in PO atbx if cleared by ID.
--- NOTE | 2017-05-25 16:47 | PN ---
Progress Note - Progress Note Date of Service: 05/25/17 SOAP: Subjective: CC: lymphadenopathy HPI: 56 year old diabetic woman with anorexia, fever, right groin swelling and pain. Appetite and energy improved. No fever, rash, or diarrhea. Objective: Vital Signs Temp 37.8 C 05/25/17 14:17 Pulse 104 05/25/17 16:26 Resp 16 05/25/17 14:17 BP 161/85 05/25/17 16:26 Pulse Ox 94 05/25/17 16:26 Intake & Output 05/24/17 05/25/17 05/25/17 18:59 06:59 18:59 Intake Total 1670 4197 480 Output Total 0 Balance 1670 4197 480 Weight 160 lb Intake: IV Fluids 4142 NS 4142 IVPB 50 55 ABX - CEFTRIAXONE 50 55 Oral 1620 0 480 Output: Urine 0 Other: Estimated Void Medium # Bowel Movements 0 # Voids 0 4 Gen:awake, no distress Neuro:Ox3, moves all extremities Heart:RRR no murmur Lungs:CTA Abd:+BS NTND soft Skin: no rash MSK: 4 cm are induration right prox thigh; mild warmth, no erythema LN: <1cm R inguinal node, mobile firm Laboratory Results - last 24 hr 05/22/17 05/24/17 05/24/17 07:21 07:36 16:54 WBC RBC Hgb Hct MCV MCH MCHC RDW Plt Count MPV Neut % (Auto) Lymph % (Auto) Castro % (Auto) Eos % (Auto) Baso % (Auto) Absolute Neuts (auto) Absolute Lymphs (auto) Absolute Monos (auto) Absolute Eos (auto) Absolute Basos (auto) Absolute Nucleated RBC Nucleated RBC % Sodium Potassium Chloride Carbon Dioxide Anion Gap BUN Creatinine Est GFR ( Amer) Est GFR (Non-Af Amer) BUN/Creatinine Ratio Glucose POC Glucose (mg/dL) 240 H Calcium Total Bilirubin AST ALT Alkaline Phosphatase Total Protein Albumin Globulin Albumin/Globulin Ratio CA 125 Antigen 14.5 HIV-1 RNA (PCR) Undetected 05/24/17 05/25/17 05/25/17 22:17 07:43 08:19 WBC 15.8 H RBC 3.28 L Hgb 8.0 L Hct 24 L MCV 74 L MCH 25 L MCHC 33 RDW 14 Plt Count 286 MPV 8 Neut % (Auto) 73.4 Lymph % (Auto) 14.0 L Castro % (Auto) 8.6 Eos % (Auto) 2.5 Baso % (Auto) 1.5 Absolute Neuts (auto) 11.6 H Absolute Lymphs (auto) 2.2 Absolute Monos (auto) 1.4 H Absolute Eos (auto) 0.4 Absolute Basos (auto) 0.2 Absolute Nucleated RBC 0 Nucleated RBC % 0.1 Sodium Potassium Chloride Carbon Dioxide Anion Gap BUN Creatinine Est GFR ( Amer) Est GFR (Non-Af Amer) BUN/Creatinine Ratio Glucose POC Glucose (mg/dL) 205 H 180 H Calcium Total Bilirubin AST ALT Alkaline Phosphatase Total Protein Albumin Globulin Albumin/Globulin Ratio CA 125 Antigen HIV-1 RNA (PCR) 05/25/17 05/25/17 08:19 11:50 WBC RBC Hgb Hct MCV MCH MCHC RDW Plt Count MPV Neut % (Auto) Lymph % (Auto) Castro % (Auto) Eos % (Auto) Baso % (Auto) Absolute Neuts (auto) Absolute Lymphs (auto) Absolute Monos (auto) Absolute Eos (auto) Absolute Basos (auto) Absolute Nucleated RBC Nucleated RBC % Sodium 132 L Potassium 3.4 L Chloride 102 Carbon Dioxide 24 Anion Gap 6 BUN 12 Creatinine 0.83 Est GFR ( Amer) 91.1 Est GFR (Non-Af Amer) 70.9 BUN/Creatinine Ratio 14.5 Glucose 187 H POC Glucose (mg/dL) 193 H Calcium 8.1 L Total Bilirubin 0.30 AST 24 ALT 22 Alkaline Phosphatase 112 H Total Protein 6.0 L Albumin 2.5 L Globulin 3.5 Albumin/Globulin Ratio 0.7 L CA 125 Antigen HIV-1 RNA (PCR) CT : read as no abscess; diffuse edema Assessment: 1. fever, pharyngitis, urethritis, CROW, all resolved 2. R inguinal mass with lymphadenitis ?early abscess 3. diabetes with hyperglycemia 4. acute kidney injury, resolved ?pre-renal Plan: 1. keflex 500 mg po TID x10 days; fu with general surgery 35 minutes floor time >50% face to face discussing follow up plans Discussed with Carolyn Palencia NP and the patient's sister who is an marine service station attendant
[2017-05-25] MEDS: Miconazole VAG.SUPP* 100 MG VAGINAL SCH (21:48)
[2017-05-26] MEDS: cefTRIAXone VIAL(*) 1,000 MG in D5W 50 ML BAG* 50 ML IVPB SCH (04:22)
[2017-05-26] MEDS: Omeprazole CAP* 20 MG PO SCH (05:46)
[2017-05-26] MEDS: Heparin VIAL(*) 5000 UNITS/ML VIAL (FIVE THOUSAND) SUBCUT SCH ×2 (05:46→13:17)
[2017-05-26] MEDS: Docusate CAP* 100 MG PO SCH (08:55)
[2017-05-26] MEDS: amLODIPine TAB* 5 MG PO SCH (08:55)
[2017-05-26] MEDS: Lactobacillus Acidophilu (GG)* 1 CAP CAP PO SCH (08:55)
[2017-05-26] MEDS: Insulin GLARGINE(*) 1 UNITS UNIT SUBCUT SCH (08:55)
[2017-05-26] MEDS: Insulin LISPRO* 1 UNITS UNIT SUBCUT SCH ×6 (08:56→17:40)
[2017-05-26 11:03] VITALS: BP 169/96
[2017-05-26] MEDS ORDERED: Polyethylene Glycol 3350* 17 GM PACKET PO SCH (15:47)
--- NOTE | 2017-05-27 10:07 | DS ---
CC: Nick Carlin MD.* DISCHARGE SUMMARY: DATE OF ADMISSION: 05/20/17. DATE OF DISCHARGE: 05/26/17. PRIMARY CARE PROVIDER: Nick Carlin MD. ATTENDING FOR THIS ADMISSION: Darlene Santos DO.* (DICTATED BY CHRISTIAN AYALA NP) HOSPITAL COURSE: This is a 56-year-old female patient who presented to the emergency department late in the evening on 05/19/17 with a complaint of sore throat, fever, vomiting, diarrhea, and inflammation of her medial thigh and groin. She was found to be hypoglycemic. She had acute kidney injury with elevated CRP. The patient also stated she was having some burning with urination. She was found to have an abscess of the right groin and some surrounding cellulitis. She also noted that she had not been taking her diabetic medications as ordered. The patient was admitted for elevated CRP, malaise, and hyperglycemia with UTI. She met criteria for SIRS. She was given IV ceftriaxone. We followed blood and urine cultures. Her A1c was found to be 14.6. She was given aggressive fluid hydration and placed on sliding scale Lispro insulin. Her blood pressure medications at that time were held secondary to some hypotension. She was seen by Infectious Disease, Dr. Jesus Montejo to identify if the source of his groin abscess was secondary to some other infection; she was growing MSSA. However, her urine was not growing out anything on culture. She was screened for sexually transmitted infections as well as HIV. All her workup came back negative. She was also screened, throat cultured for GC and chlamydia which also negative. The patient was kept on ceftriaxone. Her WBC count and fevers began to trend down. The pain in her throat resolved. She still has some erythema and tenderness to the right medial thigh. However, she had an ultrasound of the area and a followup CAT scan which showed no appreciable abscess to be able to be drained. Patient remained afebrile for the last 24 hours of her admission. She was cleared for discharge by Dr. Montejo, to be sent home on [facility] with outpatient followup. MEDICATIONS: At the time of discharge include: 1. Phentermine HCl 30 mg daily. 2. Norvasc 10 mg daily. 3. Glimepiride 4 mg 2 times a day. 4. Metformin 750 mg 2 times a day. 5. Tramadol 50 mg every 8 hours as needed. 6. Omeprazole 20 mg daily. 7. Metoprolol succinate 25 mg in the evening. 8. Culturelle 1 cap p.o. daily. 9. Keflex 500 mg 3 times a day for 10 days. PHYSICAL EXAMINATION: The patient is awake and alert in no acute distress. Vital signs are currently blood pressure 149/88, heart rate 99, respiratory rate 16, O2 saturation 99% on room air, temperature of 98.5. HEENT: The patient is atraumatic, normocephalic. PERRLA with nonicteric sclerae. Neck: Supple and nontender. No JVD. No carotid bruit auscultated and no thyromegaly appreciated. Cardiovascular: S1, S2 present. No murmurs, gallops, or rubs. Rate and rhythm are regular. Lungs: Clear bilaterally to auscultation with no wheezing, rhonchi, or rales. Abdomen: Soft, nontender, nondistended. Hyperactive bowel sounds noted. : Deferred. Musculoskeletal and skin: She has mild erythema to the right groin and medial thigh with area of firmness, but no fluctuance and no areas of induration. Improved from admission. No observable draining portions. She has no clubbing, no cyanosis, and no edema. She has +2 distal pulses palpable. She has a steady gait. Neurologic: No gross deficits. Psychiatric: She is cooperative and appropriate. LABORATORY DATA: Sodium 132, potassium 3.4, which was treated, chloride 102, CO2 24, BUN 12, creatinine 0.83, GFR 91.1, glucose today is 133, calcium 8.1. AST 24, ALT 22, alk phos 112, total protein 6, albumin 2.5. CA-125 antigen is 14.5. WBCs 15.8, RBCs 3.28, hemoglobin 8, hematocrit 24, platelets 286. DISCHARGE DIAGNOSES: 1. Cellulitis and right groin abscess. 2. Uncontrolled diabetes mellitus. 3. Urinary tract infection. 4. Acute kidney injury, now resolved. 5. Dysphasia, now resolved. 6. Acute on chronic anemia. 7. Hypertension. 8. Electrolyte disturbances, now resolved. 9. Constipation. The patient was discharged to home in stable condition under the care of her . All questions were answered. The patient verbalized her understanding of the followups and medications at the time of discharge. Of significant note, the metoprolol is a new medication for her. This was recommended by her primary care doctor. She did have some labile hypertension while she was admitted. So, she was started on low-dose metoprolol, which she seem to respond to while inpatient. The patient understands that this is a new medication for her. It was also highly recommended that she follow up with her primary regarding her diabetes. Her sugars were very uncontrolled. Her A1c is 14.6. The patient admits to noncompliance with her medications and her diet. However, I think she needs to be evaluated for insulin therapy at this time given the severity of her sugars and the nature of her infectious process. CHRISTIAN AYALA NP [id number]/CPS #: [id number] MTDD
== END 2017-05-26 18:15 | disposition home or self-care (01) | DRG 383 ==
LOC: ED 21:51 → MED 05-20 01:47
PROVIDERS: ADMIT Hospitalist; ATTEND Internal Medicine
DX: L02.214 Cutaneous abscess of groin (principal); E11.42 Type 2 diabetes mellitus with diabetic polyneuropathy; I95.9 Hypotension, unspecified; R13.10 Dysphagia, unspecified; E11.319 Type 2 diabetes mellitus with unspecified diabetic retinopathy without macular edema; N39.0 Urinary tract infection, site not specified; L03.314 Cellulitis of groin; E11.65 Type 2 diabetes mellitus with hyperglycemia; E87.6 Hypokalemia; D64.9 Anemia, unspecified; J02.9 Acute pharyngitis, unspecified; I88.9 Nonspecific lymphadenitis, unspecified; K59.00 Constipation, unspecified; I10 Essential (primary) hypertension; F41.9 Anxiety disorder, unspecified; H91.90 Unspecified hearing loss, unspecified ear; E66.3 Overweight; B95.61 Methicillin susceptible Staphylococcus aureus infection as the cause of diseases classified elsewhere; H35.039 Hypertensive retinopathy, unspecified eye; Z91.14 Patient's other noncompliance with medication regimen; Z98.42 Cataract extraction status, left eye; Z98.41 Cataract extraction status, right eye; Z83.3 Family history of diabetes mellitus; Z68.28 Body mass index [BMI] 28.0-28.9, adult; Z23 Encounter for immunization; Z90.710 Acquired absence of both cervix and uterus; Z82.49 Family history of ischemic heart disease and other diseases of the circulatory system; Z87.891 Personal history of nicotine dependence
CPT/HCPCS: 36415; 36600; 70490; 71045; 74176; 80048; 80053; 81003; 81015; 82565; 82570; 82728; 82803; 82947; 83036; 83540; 83550; 83605; 83735; 84156; 84520; 85025; 85610; 85730; 86140; 86304; 86592; 87040; 87070; 87077; 87086; 87186; 87205; 87491; 87502; 87536; 87591; 87640; 87641; 87651; 90686; 96374; 96375; 99285; A9270-GY; J0696; J0780; J1644; J1885; J2405; J3490; Q9967

== ENCOUNTER 2018-10-19 14:42 | Emergency (ER) | payer BC ==
--- NOTE | 2018-10-19 16:10 | ED ---
GI/ HPI - HPI Summary HPI Summary: A 58 y/o female presents to [facility] with a chief complaint of pulsating urethral pain for the past few days. She denies any burning when she urinates. She said that she took Motrin at 06:00 today. She says that she has suprapubic pain. She says that she has her pain mostly after urinating. At triage she rated her pain as a 0/10 in severity. She denies any fever, chills, erythema of eyes, sore throat, CP, SOB, cough, abdominal pain, N/V, hematuria, myalgia, edema, rash, or dizziness. She denies any Hx of kidney stones. She takes Trulicity. She denies any smoking or drug use. - History of Current Complaint Chief Complaint: EDUrogenitalProblems Time Seen by Provider: 10/19/18 16:04 Stated Complaint: URETHRAL PAIN PER PT Hx Obtained From: Patient Onset/Duration: Started Days Ago, Still Present Timing: Intermittent - after urinating Severity: Mild Current Severity: Mild Pain Intensity: 0 - out of 10 Location of Pain: Suprapubic, Flank Pain Characteristics: Other: - pulsating Associated Signs and Symptoms: Positive: Dysuria, Abdominal Pain. Negative: Nausea, Vomiting, Fever, Hematuria, Chills, Cough, Chest Pain Aggravating Factor(s): Urination Alleviating Factor(s): Nothing - Additional Pertinent History Primary Care Physician: [id number] - Allergy/Home Medications Allergies/Adverse Reactions: Allergies Allergy/AdvReac Type Severity Reaction Status Date / Time No Known Allergies Allergy Verified 05/19/17 22:57 Home Medications: Home Medications Brimonidine Tartrate 1 drop LEFT EYE DAILY 10/19/18 [History Confirmed 10/19/18] Dulaglutide (NF) [Trulicity (NF)] 1.5 mg INJ WEEKLY 10/19/18 [History Confirmed 10/19/18] Timolol 0.5% OPTH.DIA* [Timoptic 0.5% Opth*] 1 drop LEFT EYE DAILY 10/19/18 [ History Confirmed 10/19/18] PMH/Surg Hx/FS Hx/Imm Hx Endocrine/Hematology History: Reports: Hx Diabetes Cardiovascular History: Reports: Hx Hypertension, Other Cardiovascular Problems/ Disorders - STATES "ENLARGED HEART" Musculoskeletal History: Reports: Hx Bursitis - SEPTEMBER 2015, LEFT HIP, INJECTION HELPED Sensory History: Reports: Hx Cataracts - BILATERAL, Hx Contacts or Glasses - READING Comment Only: Hx Hearing Aid - HARD OF HEARING, NO AID Opthamlomology History: Reports: Hx Cataracts - BILATERAL, Hx Contacts or Glasses - READING Neurological History: Reports: Hx Nerve Disease Psychiatric History: Reports: Hx Anxiety - Surgical History Surgery Procedure, Year, and Place: 2005 HYSTERECTOMY [facility]. 1980s LIPOMA OF RIGHT HIP [facility] Hx Anesthesia Reactions: Yes - N/V - Immunization History Date of Influenza Vaccine: has not received Infectious Disease History: No Infectious Disease History: Denies: Traveled Outside the [place] in Last 30 Days - Family History Known Family History: Positive: Cardiac Disease, Hypertension - Social History Alcohol Use: None Alcohol Amount: 1-2 DRINKS/MONTH Substance Use Type: Reports: None Smoking Status (MU): Former Smoker Have You Smoked in the Last Year: No Review of Systems Negative: Fever, Chills Negative: Erythema Negative: Sore Throat Negative: Chest Pain Negative: Shortness Of Breath, Cough Positive: Abdominal Pain. Negative: Vomiting, Nausea Positive: dysuria, pain - urethral pain. Negative: burning, hematuria Negative: Myalgia, Edema Negative: Rash Neurological: Negative - dizziness All Other Systems Reviewed And Are Negative: Yes Physical Exam - Summary Physical Exam Summary: Constitutional: Well-developed, Well-nourished, Alert. (-) Distressed Skin: Warm, Dry HENT: Normocephalic; Atraumatic Eyes: Conjunctiva normal Neck: Musculoskeletal ROM normal neck. (-) JVD, (-) Stridor, (-) Tracheal deviation Cardio: Rhythm regular, rate normal, Heart sounds normal; Intact distal pulses; The pedal pulses are 2+ and symmetric. Radial pulses are 2+ and symmetric. (-) Murmur Pulmonary/Chest wall: Effort normal. (-) Respiratory distress, (-) Wheezes, (-) Rales Abd: Soft, (+) mild suprapubic tenderness, (-) Distension, (-) Guarding, (-) Rebound Musculoskeletal: (-) Edema Lymph: (-) Cervical adenopathy Neuro: Alert, Oriented x3 Psych: Mood and affect Normal\\ Triage Information Reviewed: Yes Vital Signs On Initial Exam: Initial Vitals Temp Pulse Resp BP Pulse Ox 98.2 F 99 16 170/100 100 10/19/18 14:48 10/19/18 14:48 10/19/18 14:48 10/19/18 14:48 10/19/18 14:48 Vital Signs Reviewed: Yes Diagnostics - Vital Signs Vital Signs Temp Pulse Resp BP Pulse Ox 10/19/18 14:48 98.2 F 99 16 170/100 100 - Laboratory Result Diagrams: 10/19/18 15:46 10/19/18 15:46 Lab Statement: Any lab studies that have been ordered have been reviewed, and results considered in the medical decision making process. GIGU Course/Dx - Course Course Of Treatment: A 58 y/o female presents to [facility] with a chief complaint of pulsating urethral pain for the past few days. She denies any burning when she urinates. She said that she took Motrin at 06:00 today. She says that she has suprapubic pain. She says that she has her pain mostly after urinating. At triage she rated her pain as a 0/10 in severity. She denies any fever, chills, erythema of eyes, sore throat, CP, SOB, cough, abdominal pain, N/V, hematuria, myalgia, edema, rash, or dizziness. She denies any Hx of kidney stones. She takes Trulicity. She denies any smoking or drug use. The physical exam revealed mild suprapubic tenderness. All of her pain is resolved, all of her pain has been suprapubic, I do not suspect an active kidney stone although she already may have passed it. Blood work and chemistries obtained and are WNL. The patient will be discharged home with prescriptions for Pyridium and Bactrim , was instructed to drink plenty off fluids, and follow up with her PCP in 2-3 days. The patient is agreeable with this plan. - Diagnoses Provider Diagnoses: Hemorrhagic cystitis, UTI (urinary tract infection) Discharge - Sign-Out/Discharge Documenting (check all that apply): Patient Departure - DC Patient Received Moderate/Deep Sedation with Procedure: No - Discharge Plan Condition: Stable Disposition: HOME Prescriptions: Phenazopyridine TAB* [Pyridium 100 mg TAB*] 100 mg PO TID #20 tab Sulfamethox/Trimethoprim DS* [Bactrim DS 800/160 TAB*] 1 tab PO BID #10 tab Patient Education Materials: Urinary Tract Infection in Women (DC) Referrals: Nick Carlin MD [Primary Care Provider] - (2-3 days) Additional Instructions: RETURN TO THE EMERGENCY DEPARTMENT FOR CHANGING OR WORSENING SYMPTOMS Drink plenty of liquids. - Attestation Statements Document Initiated by Scribe: Yes Documenting Scribe: Avelino Kim Provider For Whom Scribe is Documenting (Include Credential): Master Christensen MD Scribe Attestation: I, Avelino Kim, scribed for Master Christensen MD on 10/19/18 at 1643. Status of Scribe Document: Ready
[2018-10-19 16:22] LABS: ABS Basophils 0.1 10^3/ul (0-0.2); ABS Eosinophils 0.1 10^3/ul (0-0.6); ABS Lymphocytes 1.7 10^3/ul (1.0-4.8); ABS Monocytes 0.6 10^3/ul (0-0.8); ABS Neutrophils 6.9 10^3/ul (1.5-7.7); Eosinophil % 1.5 %; Hematocrit 32 % (35-47); Hemoglobin 10.9 g/dL (12.0-16.0); Lymphocyte % 18.2 %; Mean Corpuscular HGB Conc 34 g/dL (31-36); Mean Corpuscular Hemoglobin 26 pg (27-31); Mean Corpuscular Volume 78 fL (80-97); Mean Platelet Volume 8.5 fL (7.4-10.4); Platelet Count 309 10^3/uL (150-450); Red Blood Count 4.17 10^6 /uL (3.70-4.87); Red Cell Distribution Width 15 % (10-15); White Blood Count 9.5 10^3/uL (3.5-10.8)
[2018-10-19 16:24] LABS: Activated Partial Thrombo Time 33.2 seconds (26.0-38.0); INR 0.97 (0.82-1.09)
[2018-10-19 16:28] LABS: Albumin 3.9 g/dL (3.2-5.2); BUN/Creatinine Ratio 25.9 (8-20); C Reactive Protein 16.94 mg/L (<8.01); Calcium 9.3 mg/dL (8.6-10.3); EGFR Non-African American 36.4 (>60); Total Bilirubin 0.4 mg/dL (0.2-1.0); Total Protein 7.9 g/dL (6.4-8.9)
[2018-10-19 16:33] LABS: Potassium 3.8 mmol/L (3.5-5.0)
[2018-10-19 16:48] LABS: Urine Appearance Turbid; Urine Bacteria Absent (Absent); Urine Bilirubin Negative (Negative); Urine Blood 3+ (Negative); Urine Color Yellow; Urine Glucose 1+(50 mg/dL) (Negative); Urine Ketones Negative (Negative); Urine Nitrite Negative (Negative); Urine Protein 3+(>=500 mg/dL) (Negative); Urine Red Blood Cell 3+(>10/hpf) (Absent); Urine Specific Gravity 1.019 (1.010-1.030); Urine Urobilinogen Negative (Negative); Urine White Blood Cell 3+(>20/hpf) (Absent)
[2018-10-19 17:18] VITALS: BP 163/96
== END 2018-10-19 17:04 | disposition home or self-care (01) ==
LOC: ED 14:42
DX: N30.90 Cystitis, unspecified without hematuria (principal); E11.9 Type 2 diabetes mellitus without complications; I10 Essential (primary) hypertension; Z87.891 Personal history of nicotine dependence
CPT/HCPCS: 36415; 80053; 81003; 81015; 83605; 83690; 85025; 85610; 85730; 86140; 86850; 86900; 86901; 87077; 87086; 87186; 99283

== ENCOUNTER 2019-05-22 14:46 | Emergency (ER) | payer BC ==
--- NOTE | 2019-05-22 15:10 | ED ---
HPI Chest Pain - HPI Summary HPI Summary: This pt is a 58 y/o female, with hx of retinopathy, presenting to [facility] c/o right eye pain and chest pain x3 days. Pt reports her right eye pain is more significant and this pain is reflecting to her chest. She states her chest pain is described as pressure but notes it is "really not there" and rates it 3/10 in severity. Pt describes her right eye pain as sharp pain and rates this pain as "off the charts." Pt reports associated symptoms are decreased vision from right eye, right eye socket pain, right sided sinus pain. Denies fever, nausea, vomiting, SOB. Pt is taking Tylenol every 4 hours for her eye pain and her next dose is at 1600. Pt states she used to get retinal injections (Eylea) but has not had them in months due to having cardiac work up. Her cloth pattern maker is Dr. Cota in [place], [place] but has not contacted him prior to coming in today. PMHx: cataract surgery in both eyes, cataract lenses in both eyes, HTN, DM, high cholesterol, CKD, cardiac stents placed in February 2019 at [facility]. Patient is currently on Brilinta and aspirin, which she has taken today. - History of Current Complaint Chief Complaint: EDChestPainROMI Time Seen by Provider: 05/22/19 14:54 Hx Obtained From: Patient Onset/Duration: Started Days Ago, Still Present Timing: Lasting Days Current Severity: Mild Pain Intensity: 3 Pain Scale Used: 0-10 Numeric Chest Pain Location: Diffuse Chest Pain Radiates: No Character: Pressure/Squeezing - pressure Aggravating Factor(s): Nothing Alleviating Factor(s): Nothing Associated Signs and Symptoms: Positive: Chest Pain. Negative: Shortness of Breath, Fever, Nausea, Vomiting - Additional Pertinent History Primary Care Physician: [id number] - Allergy/Home Medications Allergies/Adverse Reactions: Allergies Allergy/AdvReac Type Severity Reaction Status Date / Time No Known Allergies Allergy Verified 05/19/17 22:57 Home Medications: Home Medications Amlodipine Besylate 2.5 mg PO DAILY 05/22/19 [History Confirmed 05/22/19] Aspirin EC TAB* [Ecotrin EC Low Dose 81 MG*] 81 mg PO DAILY 05/22/19 [History Confirmed 05/22/19] Atorvastatin* [Lipitor*] 40 mg PO DAILY 05/22/19 [History Confirmed 05/22/19] Carvedilol TAB* [Coreg TAB*] 25 mg PO Q12H 05/22/19 [History Confirmed 05/22/19] Insulin GLARGINE(*) [Lantus 100 unist/ml 10 ml VIAL (*)] 10 - 12 units SUBCUT DAILY 05/22/19 [History Confirmed 05/22/19] Insulin Lispro [Humalog 100 units/ml 5 ml x 3 Pens] 10 - 12 units SUBCUT DAILY 05/22/19 [History Confirmed 05/22/19] Spironolactone TAB* [Aldactone TAB*] 25 mg PO DAILY 05/22/19 [History Confirmed 05/22/19] Ticagrelor* [Brilinta*] 90 mg PO BID 05/22/19 [History Confirmed 05/22/19] Torsemide TAB* [Demadex*] 40 mg PO DAILY 05/22/19 [History Confirmed 05/22/19] Valsartan TAB* [Diovan TAB*] 160 mg PO DAILY 05/22/19 [History Confirmed ] PMH/Surg Hx/FS Hx/Imm Hx Endocrine/Hematology History: Reports: Hx Diabetes Cardiovascular History: Reports: Hx Coronary Artery Disease, Hx Hypercholesterolemia, Hx Hypertension, Other Cardiovascular Problems/Disorders - STATES "ENLARGED HEART," s/p cardiac stents History: Reports: Hx Renal Disease Musculoskeletal History: Reports: Hx Bursitis - SEPTEMBER 2015, LEFT HIP, INJECTION HELPED Sensory History: Reports: Hx Cataracts - BILATERAL, Hx Contacts or Glasses - READING Comment Only: Hx Hearing Aid - HARD OF HEARING, NO AID Opthamlomology History: Reports: Hx Cataracts - BILATERAL, Hx Contacts or Glasses - READING, Other Sensory Impairments - Retinopathy Neurological History: Reports: Hx Nerve Disease Psychiatric History: Reports: Hx Anxiety - Surgical History Surgical History: Yes Surgery Procedure, Year, and Place: 2004 HYSTERECTOMY [facility]. LIPOMA OF RIGHT HIP [facility] Hx Anesthesia Reactions: Yes - N/V - Immunization History Date of Influenza Vaccine: has not received - Family History Known Family History: Positive: Cardiac Disease, Hypertension, Diabetes - Mother Family History: Mother with ovarian CA. Father with prostate CA. - Social History Alcohol Use: None Alcohol Amount: 1-2 DRINKS/MONTH Substance Use Type: Reports: None Smoking Status (MU): Former Smoker Have You Smoked in the Last Year: No Review of Systems Negative: Fever Eyes: Other - POSITIVE: right eye pain, sinus pain on the right, decreased vision on the right Positive: Chest Pain Negative: Shortness Of Breath Negative: Vomiting, Nausea All Other Systems Reviewed And Are Negative: Yes Physical Exam - Summary Physical Exam Summary: VITAL SIGNS: Reviewed. GENERAL: Patient is a well-developed and nourished female who is lying comfortable in the stretcher. Patient is not in any acute respiratory distress. HEAD AND FACE: No signs of trauma. No ecchymosis, hematomas or skull depressions. No sinus tenderness. EYES: PERRLA, EOMI x 2, Right eye conjunctival injection. Vision acuity: patient unable to see anything out of right eye and patient has 20/200 vision in left eye. Using TonoPen, the pressure of the right eye measured three times at 9mmHg, 10mmHg, and 10mmHg. EARS: Hearing grossly intact. Ear canals and tympanic membranes are within normal limits. MOUTH: Oropharynx within normal limits. NECK: Supple, trachea is midline, no adenopathy, no JVD, no carotid bruit, no c- spine tenderness, neck with full ROM. CHEST: Symmetric, no tenderness at palpation LUNGS: Clear to auscultation bilaterally. No wheezing or crackles. CVS: Regular rate and rhythm, S1 and S2 present, no murmurs or gallops appreciated. ABDOMEN: Soft, non-tender. No signs of distention. No rebound, no guarding, and no masses palpated. Bowel sounds are normal. EXTREMITIES: FROM in all major joints, no edema, no cyanosis or clubbing. NEURO: Alert and oriented x 3. No acute neurological deficits. Speech is normal and follows commands. SKIN: Dry and warm GCS: 15. Triage Information Reviewed: Yes Vital Signs On Initial Exam: Initial Vitals Pulse Resp BP Pulse Ox 97 21 194/111 99 05/22/19 15:11 05/22/19 15:11 05/22/19 15:11 05/22/19 15:11 Vital Signs Reviewed: Yes - [place] Coma Scale Best Eye Response: 4 - Spontaneous Best Motor Response: 6 - Obeys Commands Best Verbal Response: 5 - Oriented Coma Scale Total: 15 Procedures - Sedation Patient Received Moderate/Deep Sedation with Procedure: No Diagnostics - Laboratory Result Diagrams: 05/22/19 15:26 05/22/19 15:26 Lab Statement: Any lab studies that have been ordered have been reviewed, and results considered in the medical decision making process. - Radiology Chest XR Radiology Interpretation Completed By: Radiologist Summary of Radiographic Findings: IMPRESSION: No active cardiopulmonary disease is noted. Dr. Dahl has reviewed this report. - CT Brain CT CT Interpretation Completed By: Radiologist Summary of CT Findings: IMPRESSION: 1. No evidence for acute intracranial abnormality. 2. Low-lying cerebellar tonsils raising the possibility of a chiari I malformation. Consider outpatient MRI imaging of the brain without contrast for further evaluation. Dr. Dahl has reviewed this report. Orbit CT CT Interpretation Completed By: Radiologist Summary of CT Findings: Impression: No acute abnormality involving the orbits. ED physician has reviewed this report. - EKG 14:54 Cardiac Rate: NL - at 89 bpm EKG Rhythm: Sinus Rhythm Summary of EKG Findings: EKG at 1454 shows sinus rhythm at a rate of [address] elevations. Inverted T waves in leads aVL, V5, and V6. This EKG was interpreted and reviewed by ED physician. Re-Evaluation - Re-Evaluation First Eval Re-Evaluation Time: 17:42 Change: Improved Comment: Blood pressure is 157/88. Pain has decreased on the right eye. Second Eval Re-Evaluation Time: 18:00 Comment: Blood pressure is 138/82 Chest Pain Course/Dx - Course Assessment/Plan: This pt is a 58 y/o female, with hx of retinopathy, presenting to [facility] c/o right eye pain and chest pain x3 days. Pt reports her right eye pain is more significant and this pain is reflecting to her chest. She states her chest pain is described as pressure but notes it is "really not there" and rates it 3/10 in severity. Pt describes her right eye pain as sharp pain and rates this pain as "off the charts." Pt reports associated symptoms are decreased vision from right eye, right eye socket pain, right sided sinus pain. Denies fever, nausea, vomiting, SOB. Pt is taking Tylenol every 4 hours for her eye pain and her next dose is at 1600. Pt states she used to get retinal injections (Eylea) but has not had them in months due to having cardiac work up. Her cloth pattern maker is Dr. Cota in [place], [place] but has not contacted him prior to coming in today. PMHx: cataract surgery in both eyes, cataract lenses in both eyes, HTN, DM, high cholesterol, CKD, cardiac stents placed in February 2019 at [facility]. Patient is currently on Brilinta and aspirin, which she has taken today. In the ED course, the patient was placed on a cardiac cath lab radiology technologist, IV access was obtained, IV fluids started. Patient reports taking Aspirin at home. She also took Brilinta. Patient is very hypertensive, therefore she was given labetalol 40 mg. The blood pressure did not improve. Therefore the patient was placed on a nicardipine drip. EKG is a normal sinus rhythm without any ST elevations.patient has inverted T waves in leads V5 and V6. EKG is similar to previous EKG. The patient continues to have severe right eye pain. There is no corneal abrasions. She reports that the pain is mostly in the back of the eye. She has exophthalmos. The conjunctiva is injected. She doesnt have any blurring or obscuring of the pupil. There is no blood seen in the pupil. The pupils are slowly reactive, but he still reactive to light and the patient has photosensitivity. The patient reports that the pain is 10 out of 10. Therefore, she was given Morphine and Fentanyl for the pain. I attempted to measure the ocular pressure, however the patient did not tolerate it. Blood test w/o a significant abnormality except for a slight anemia with hemoglobin of 9 and hematocrit of 27, sodium of 132, BUN of 51, creatinine of 2.22, glucose of 277. Two troponins 4 hours apart 0.01. At this point, the patient is not tolerating the pain despite pain medications as she is not tolerating for me to measure the ocular pressure. I decided to treat the patient with Atenolol, Pilocarpine, and Apraclonidine. I discussed the case with Dr. Bazan who is covering for Dr. Cota in the retina and vitreous surgeons, and he reports that the patient does not need any other treatments because probably the patient may be bleeding in the eye. He reports that eventually she will need surgery after the patient is treated for the hypertensive emergency and chest pain. The patient continues to have right eye pain, therefore the patient was given another dose of Fentanyl. At this point, I was able to measure the right ocular pressure in his between 9 and 10. I discussed the case with Dr. Garza from ophthalmology, and he reports no further treatment at this point. He will consult for this patient tomorrow morning. I discussed the case with Dr. Childers from the ICU services for admission, however I was advised that there are no ICU beds so he recommends for the patient to be transferred to another facility. I discussed the case with the transfer services and [facility] and had a spoke with Dr. Bingham and the reported that they are looking for an ICU bed. I was informed by [facility] that we have an ICU bed and the admitting doctor will be Dr. Bingham. Patient is hemodynamically stable. The patients pain in the eye is much improved. The pressures also controlled. - Chest Pain Differential Diagnosis/HQI/PQRI: Acute IA, ACS, Angina, CHF, Chest Wall, GI Disease, Pulmonary Edema, Pulmonary Embolism - Diagnoses Provider Diagnoses: Hypertensive urgency, Vision loss of right eye - Provider Notifications Discussed Care Of Patient With: Dr. Bazan Time Discussed With Above Provider: 15:40 Instructed by Provider To: Other - Discussed the pt's case with Dr. Bazan, at [facility] covering for Dr. Cota, reports the patient is likely having decreased vision because she might have bled in the eye and only recommends pain control. Dr. Bazan states there's nothing I can give the patient in the ED that will improve her vision and that the patient will need surgery, which can be done after all her cardiac work up is finished. [17:59] Discussed with Dr. Teran, resident at [facility], who reports she will contact Dr. Chowdhury, attending at [facility], and will call back. [18:11] Spoke with transfer center. [18:23] Discussed the case with Dr. Garza, who states he will see the patient at [facility] if she is accepted for admission. However, there are no ICU beds available. [20:30] I spoke with the transfer center at [facility], where the patient is accepted by Dr. Bingham in the ICU. Reason For Transfer: No beds available. Discharge ED - Sign-Out/Discharge Documenting (check all that apply): Patient Departure - Patient accepted for transfer by Dr. Bingham in the [facility] ICU. - Discharge Plan Condition: Stable Disposition: TRANS HIGHER LVL OF CARE FAC Referrals: Nick Carlin MD [Primary Care Provider] - - Billing Disposition and Condition Condition: STABLE Disposition: Trans Higher Lvl of Care Fac - Attestation Statements Document Initiated by Ianibe: Yes Documenting Scribe: Sarahi Alexis Provider For Whom Yolanda is Documenting (Include Credential): Joey Dahl MD Scribe Attestation: I, Sarahi Alexis, scribed for Joey Dahl MD on 05/22/19 at 2130. Scribe Documentation Reviewed: Yes Provider Attestation: The documentation as recorded by the ianibe, Sarahi Alexis accurately reflects the service I personally performed and the decisions made by , Joey Dahl MD Status of Scribe Document: Viewed
[2019-05-22] MEDS ORDERED: Labetalol IV* 5 MG/ML 20 ML VIAL ONE (15:18)
[2019-05-22] MEDS: Labetalol IV* 5 MG/ML 20 ML VIAL IV PUSH ONE ×3 (15:23→15:35)
[2019-05-22 15:40] LABS: ABS Eosinophils 0.2 10^3/ul (0-0.6); ABS Lymphocytes 1.4 10^3/ul (1.0-4.8); ABS Monocytes 0.6 10^3/ul (0-0.8); ABS Neutrophils 3.2 10^3/ul (1.5-7.7); Eosinophil % 3.1 %; Hematocrit 27 % (35-47); Mean Corpuscular HGB Conc 34 g/dL (31-36); Mean Corpuscular Hemoglobin 27 pg (27-31); Mean Corpuscular Volume 78 fL (80-97); Mean Platelet Volume 8.3 fL (7.4-10.4); Platelet Count 262 10^3/uL (150-450); Red Cell Distribution Width 19 % (10-15); White Blood Count 5.4 10^3/uL (3.5-10.8)
[2019-05-22] MEDS ORDERED: Ondansetron INJ* 2 MG/ML VIAL IV ONE (15:51)
[2019-05-22] MEDS ORDERED: Morphine 4 MG/ML VIAL (1 ml) 4 MG/ML VIAL IV ONE (15:51)
[2019-05-22 15:52] LABS: Activated Partial Thrombo Time 34.7 seconds (26.0-38.0); INR 1.01 (0.82-1.09)
[2019-05-22 16:00] LABS: Troponin I 0.01 ng/mL (<0.03)
[2019-05-22 16:02] LABS: CKMB ng/mL 3.5 ng/mL (0.6-6.3)
[2019-05-22 16:22] LABS: Albumin 4.6 g/dL (3.2-5.2); Albumin/Globulin Ratio 1.2 (1-3); Calcium 9.4 mg/dL (8.6-10.3); EGFR African American 27.4 (>60); EGFR Non-African American 22.6 (>60); Globulin 3.7 g/dL (2-4); Magnesium 2.2 mg/dL (1.9-2.7); Potassium 4.4 mmol/L (3.5-5.0); Total Bilirubin 0.2 mg/dL (0.2-1.0); Total Protein 8.3 g/dL (6.4-8.9)
[2019-05-22] MEDS ORDERED: fentaNYL* 50 MCG/ML 2 ML VIAL (100 MCG VIAL) IV SLOW PU ONE ×2 (16:32→19:04)
[2019-05-22] MEDS: niCARdipine 0.1MG/ML IVPREMIX* 20 MG/200 ML BAG IV SCH ×2 (17:10→21:46)
[2019-05-22] MEDS ORDERED: Acetaminophen TAB* 325 MG PO ONE (17:42)
[2019-05-22] MEDS ORDERED: Timolol 0.5% OPTH.SOL* BTL RIGHT EYE ONE (17:57)
[2019-05-22] MEDS ORDERED: PILOCARPINE 2% RIGHT EYE ONE (18:30)
[2019-05-22] MEDS ORDERED: OPTH RIGHT EYE ONE (18:30)
[2019-05-22] MEDS ORDERED: Tetracaine 0.5% OPTH.SOL 4 ML* 1 DROP BTL ONE (18:37)
[2019-05-22] MEDS ORDERED: APRACLONIDINE 1% RIGHT EYE SCH (21:00)
[2019-05-22 22:53] VITALS: BP 149/80
== END 2019-05-22 22:14 | disposition short-term general hospital (02) ==
LOC: ED 14:46
DX: I16.0 Hypertensive urgency (principal); H54.61 Unqualified visual loss, right eye, normal vision left eye; R07.89 Other chest pain; E11.22 Type 2 diabetes mellitus with diabetic chronic kidney disease; I12.9 Hypertensive chronic kidney disease with stage 1 through stage 4 chronic kidney disease, or unspecified chronic kidney disease; N18.9 Chronic kidney disease, unspecified; Z79.4 Long term (current) use of insulin; Z79.82 Long term (current) use of aspirin; Z79.02 Long term (current) use of antithrombotics/antiplatelets; Z95.5 Presence of coronary angioplasty implant and graft; Z87.891 Personal history of nicotine dependence
CPT/HCPCS: 36415; 70450; 70480; 71045; 80053; 82550; 82553; 83605; 83735; 83880; 84484; 85025; 85610; 85730; 93005; 96365; 96375; 96376; 99285; A9270-GY; J2270; J2405; J3010

== ENCOUNTER 2020-12-27 20:17 | Inpatient (IN) ==
[2020-12-27 21:30] LABS: ABS Basophils 0.1 10^3/ul (0-0.2); ABS Eosinophils 0.2 10^3/ul (0-0.6); ABS Lymphocytes 1.7 10^3/ul (1.0-4.8); ABS Monocytes 0.9 10^3/ul (0-0.8); ABS Neutrophils 6.6 10^3/ul (1.5-7.7); Eosinophil % 2.1 %; Hematocrit 23 % (35-47); Hemoglobin 7.7 g/dL (12.0-16.0); Lymphocyte % 17.4 %; Mean Corpuscular HGB Conc 33 g/dL (31-36); Mean Corpuscular Hemoglobin 25 pg (27-31); Mean Corpuscular Volume 76 fL (80-97); Mean Platelet Volume 8.3 fL (7.4-10.4); Nucleated Red Blood Cells % 0.1; Platelet Count 397 10^3/uL (150-450); Red Blood Count 3.07 10^6 /uL (3.70-4.87); Red Cell Distribution Width 16 % (10-15); White Blood Count 9.5 10^3/uL (3.5-10.8)
[2020-12-27 21:49] LABS: ALT 11 U/L (7-52); AST 15 U/L (13-39); Albumin 3.2 g/dL (3.2-5.2); Albumin/Globulin Ratio 0.8 (1-3); Alkaline Phosphatase 59 U/L (35-149); Anion Gap 11 mmol/L (2-11); Blood Urea Nitrogen 61 mg/dL (6-24); CO2 Carbon Dioxide 19 mmol/L (22-32); Calcium 8.4 mg/dL (8.6-10.3); Chloride 109 mmol/L (101-111); EGFR African American 9.2 (>60); EGFR Non-African American 7.6 (>60); Globulin 3.8 g/dL (2-4); Potassium 3.3 mmol/L (3.5-5.0); Sodium 139 mmol/L (135-145)
[2020-12-27 22:06] LABS: Glucose 44 mg/dL (70-100)
[2020-12-27 22:07] LABS: Troponin I 0.04 ng/mL (<0.03)
[2020-12-27] MEDS ORDERED: Furosemide 100 mg/10 ml IV VIAL IV ONE (23:26)
[2020-12-28 00:53] LABS: Rapid COVID-19 Molecular Undetected (Undetected)
[2020-12-28 01:05] LABS: Troponin I 0.04 ng/mL (<0.03)
[2020-12-28 01:56] LABS: Phosphorus 5.6 mg/dL (2.5-5.0)
[2020-12-28 02:39] LABS: % Iron Saturation 8 % (15-55); Iron 22 ug/dL (50-212); Total Iron Binding Capacity 260 mcg/dL (250-450); Transferrin 186 mg/dL (203-362); Unsaturated Iron Binding < 245 ug/dL
[2020-12-28 03:00] LABS: Ferritin 253.4 ng/mL (11-307)
[2020-12-28 04:08] LABS: Troponin I 0.04 ng/mL (<0.03)
[2020-12-28] MEDS ORDERED: Bumetanide IV 0.25 MG/ML 4 ml VIAL (1 mg) SLOW PUSH ONE (05:00)
[2020-12-28 06:32] LABS: Calcium 8.2 mg/dL (8.6-10.3); EGFR African American 9.2 (>60); EGFR Non-African American 7.6 (>60); Potassium 3.6 mmol/L (3.5-5.0)
[2020-12-28] MEDS ORDERED: hydrALAZINE 20 mg/ml 1 ML Vial IV IV SLOW PU PRN (06:35)
[2020-12-28] MEDS: Aspirin EC 81 mg TAB.EC (enteric coated) PO SCH (08:22)
[2020-12-28] MEDS: Timolol 0.5% OPTH.SOL BTL BOTH EYES SCH (08:25)
[2020-12-28 09:16] LABS: Urine Creatinine Concentration 33.42 mg/dL
[2020-12-28 09:24] LABS: Urine Appearance Cloudy; Urine Bilirubin Negative (Negative); Urine Blood 1+ (Negative); Urine Color Straw; Urine Glucose 3+(>=500 mg/dL) (Negative); Urine Ketones Negative (Negative); Urine Nitrite Negative (Negative); Urine Protein 3+(>=500 mg/dL) (Negative); Urine Specific Gravity 1.008 (1.002-1.030); Urine Urobilinogen Negative (Negative)
[2020-12-28 10:12] LABS: Urine Bacteria 1+ (Absent); Urine Red Blood Cell Trace(0-2/hpf) (Absent); Urine Squamous Epithelial Cell Present (Absent); Urine White Blood Cell Trace(0-5/hpf) (Absent)
[2020-12-28] MEDS ORDERED: Bumetanide IV 0.25 MG/ML 4 ml VIAL (1 mg) SLOW PUSH PRN ×2 (10:49→15:24)
[2020-12-28 12:18] LABS: Urine Appearance Turbid; Urine Bilirubin Negative (Negative); Urine Blood 2+ (Negative); Urine Color Yellow; Urine Glucose 3+(>=500 mg/dL) (Negative); Urine Ketones Negative (Negative); Urine Nitrite Negative (Negative); Urine Protein 3+(>=500 mg/dL) (Negative); Urine Specific Gravity 1.013 (1.002-1.030); Urine Urobilinogen Negative (Negative)
[2020-12-28 12:31] LABS: Urine Bacteria 3+ (Absent); Urine Red Blood Cell Trace(0-2/hpf) (Absent); Urine Squamous Epithelial Cell Present (Absent); Urine White Blood Cell 3+(>20/hpf) (Absent)
[2020-12-28] MEDS ORDERED: Potassium Chlor 20 meq TAB.ER PO ONE ×3 (12:48→15:23)
[2020-12-28 14:03] LABS: Calcium 7.9 mg/dL (8.6-10.3); Potassium 3.6 mmol/L (3.5-5.0)
[2020-12-28 14:15] LABS: EGFR African American 9.1 (>60); EGFR Non-African American 7.5 (>60)
[2020-12-28] MEDS ORDERED: cloNIDine 0.1 MG PATCH 0.1 MG/24 HR 7 DAY PATCH TRANSDERM SCH (16:00)
[2020-12-28 16:19] LABS: Calcium 7.9 mg/dL (8.6-10.3); EGFR Non-African American 7.4 (>60); Potassium 3.8 mmol/L (3.5-5.0)
[2020-12-28] MEDS: Heparin 5000 UNITS/ML 1 mL VIAL SUBCUT SCH (20:42)
[2020-12-29] MEDS: Heparin 5000 UNITS/ML 1 mL VIAL SUBCUT SCH ×3 (05:14→21:43)
[2020-12-29 05:35] LABS: INR 1.15 (0.86-1.15)
[2020-12-29 05:45] LABS: Calcium 7.6 mg/dL (8.6-10.3); Magnesium 2.2 mg/dL (1.9-2.7)
[2020-12-29 05:51] LABS: EGFR African American 8.9 (>60); EGFR Non-African American 7.3 (>60)
[2020-12-29 05:57] LABS: Potassium 5.4 mmol/L (3.5-5.0)
[2020-12-29] MEDS: Aspirin EC 81 mg TAB.EC (enteric coated) PO SCH (09:08)
[2020-12-29] MEDS: Timolol 0.5% OPTH.SOL BTL BOTH EYES SCH (09:09)
[2020-12-29] MEDS: Bumetanide IV 0.25 MG/ML 4 ml VIAL (1 mg) SLOW PUSH SCH ×2 (09:12→21:43)
[2020-12-29 12:21] LABS: ABS Basophils 0.1 10^3/ul (0-0.2); ABS Eosinophils 0.3 10^3/ul (0-0.6); ABS Lymphocytes 1.5 10^3/ul (1.0-4.8); ABS Monocytes 0.8 10^3/ul (0-0.8); ABS Neutrophils 6.7 10^3/ul (1.5-7.7); Eosinophil % 2.7 %; Hematocrit 23 % (35-47); Hemoglobin 7.3 g/dL (12.0-16.0); Lymphocyte % 16.4 %; Mean Corpuscular HGB Conc 32 g/dL (31-36); Mean Corpuscular Hemoglobin 25 pg (27-31); Mean Corpuscular Volume 77 fL (80-97); Mean Platelet Volume 8.3 fL (7.4-10.4); Platelet Count 370 10^3/uL (150-450); Red Blood Count 2.98 10^6 /uL (3.70-4.87); Red Cell Distribution Width 16 % (10-15); White Blood Count 9.3 10^3/uL (3.5-10.8)
[2020-12-29 12:37] LABS: Calcium 8.2 mg/dL (8.6-10.3); EGFR African American 8.9 (>60); EGFR Non-African American 7.4 (>60); Potassium 4.8 mmol/L (3.5-5.0)
[2020-12-29] MEDS ORDERED: Dextrose 50% Syringe 50 ml 25 GM/50 ML SYRINGE IV PUSH PRN (18:08)
[2020-12-30] MEDS: Heparin 5000 UNITS/ML 1 mL VIAL SUBCUT SCH ×3 (06:04→21:10)
[2020-12-30] MEDS: Aspirin EC 81 mg TAB.EC (enteric coated) PO SCH (07:54)
[2020-12-30] MEDS: Timolol 0.5% OPTH.SOL BTL BOTH EYES SCH (07:55)
[2020-12-30] MEDS ORDERED: Clindamycin 600 MG/D5W BAG IV ONE (09:00)
[2020-12-30] MEDS: Bumetanide IV 0.25 MG/ML 4 ml VIAL (1 mg) SLOW PUSH SCH (09:06)
[2020-12-30 10:13] LABS: ABS Basophils 0.1 10^3/ul (0-0.2); ABS Eosinophils 0.3 10^3/ul (0-0.6); ABS Lymphocytes 1.8 10^3/ul (1.0-4.8); ABS Monocytes 0.8 10^3/ul (0-0.8); ABS Neutrophils 5.4 10^3/ul (1.5-7.7); Eosinophil % 3.8 %; Hematocrit 20 % (35-47); Hemoglobin 6.7 g/dL (12.0-16.0); Lymphocyte % 21.1 %; Mean Corpuscular HGB Conc 33 g/dL (31-36); Mean Corpuscular Hemoglobin 25 pg (27-31); Mean Corpuscular Volume 77 fL (80-97); Mean Platelet Volume 9.2 fL (7.4-10.4); Platelet Count 327 10^3/uL (150-450); Red Blood Count 2.66 10^6 /uL (3.70-4.87); Red Cell Distribution Width 16 % (10-15); White Blood Count 8.3 10^3/uL (3.5-10.8)
[2020-12-30 10:39] LABS: Calcium 8.3 mg/dL (8.6-10.3); EGFR African American 8.1 (>60); EGFR Non-African American 6.7 (>60); Magnesium 2.2 mg/dL (1.9-2.7); Phosphorus 5.6 mg/dL (2.5-5.0); Potassium 4.7 mmol/L (3.5-5.0)
[2020-12-30] MEDS ORDERED: Heparin 2 UNITS/ML IVPREMIX 2,000 UNIT/1,000 ML BAG IV ONE (11:50)
[2020-12-30] MEDS ORDERED: Lidocaine 1% VIAL 10 MG/ML VIAL ONE (11:50)
[2020-12-30] MEDS ORDERED: Midazolam 5 mg/5 ml VIAL 1 mg/ml 5 ml VIAL (5 mg) ONE (12:21)
[2020-12-30] MEDS ORDERED: fentaNYL 100 mcg/2 ml 50 MCG/ML VIAL ONE (12:21)
[2020-12-30] MEDS ORDERED: Metoprolol Tartrate 5 mg VIAL 5 ml VIAL (1 mg/ml) ONE (12:25)
[2020-12-30 12:44] LABS: Hepatitis B Surface Ab Not Immune (Immune)
[2020-12-30] MEDS ORDERED: Iodixanol 320 (CONTRAST) 100 ML SDV ONE (12:46)
[2020-12-30] MEDS ORDERED: Heparin 5000 UNITS/ML 1 mL VIAL ONE (13:02)
[2020-12-30] MEDS: Heparin 1,000 UNIT/ML 10 ml (10,000 UNITS) CATHLAB/DIALYSIS DIALYSIS PRN ×4 (15:11→18:00)
[2020-12-30] MEDS: Bumetanide IV 0.25 MG/ML 10 ml VIAL (2.5 mg) SLOW PUSH SCH (21:43)
[2020-12-30 22:47] LABS: Hepatitis B Surface Antigen Nonreactive (Nonreactive)
[2020-12-31] MEDS: Aspirin EC 81 mg TAB.EC (enteric coated) PO SCH (07:24)
[2020-12-31] MEDS: Timolol 0.5% OPTH.SOL BTL BOTH EYES SCH (07:24)
[2020-12-31] MEDS: Heparin 5000 UNITS/ML 1 mL VIAL SUBCUT SCH ×3 (07:47→21:03)
[2020-12-31] MEDS: Bumetanide IV 0.25 MG/ML 10 ml VIAL (2.5 mg) SLOW PUSH SCH (07:57)
[2020-12-31 09:44] LABS: ABS Basophils 0.1 10^3/ul (0-0.2); ABS Eosinophils 0.3 10^3/ul (0-0.6); ABS Lymphocytes 1.6 10^3/ul (1.0-4.8); Eosinophil % 3.2 %; Hematocrit 22 % (35-47); Hemoglobin 7.1 g/dL (12.0-16.0); Lymphocyte % 18.1 %; Mean Corpuscular HGB Conc 33 g/dL (31-36); Mean Corpuscular Hemoglobin 25 pg (27-31); Mean Corpuscular Volume 76 fL (80-97); Mean Platelet Volume 8.5 fL (7.4-10.4); Platelet Count 336 10^3/uL (150-450); Red Blood Count 2.85 10^6 /uL (3.70-4.87); Red Cell Distribution Width 16 % (10-15)
[2020-12-31 09:58] LABS: Calcium 8.1 mg/dL (8.6-10.3); EGFR Non-African American 10.8 (>60)
[2020-12-31 10:44] LABS: Hepatitis B Surface Antigen Nonreactive (Nonreactive)
[2020-12-31 10:49] LABS: Hepatitis B Core IgM Nonreactive (Nonreactive)
[2020-12-31] MEDS: Heparin 1,000 UNIT/ML 10 ml (10,000 UNITS) CATHLAB/DIALYSIS DIALYSIS PRN ×4 (12:33→15:51)
[2020-12-31] MEDS ORDERED: cloNIDine 0.2 MG PATCH 0.2 MG/24 HR 7 DAY PATCH TRANSDERM SCH (16:00)
[2021-01-01] MEDS: Timolol 0.5% OPTH.SOL BTL BOTH EYES SCH (09:00)
[2021-01-01 09:19] LABS: Hematocrit 22 % (35-47); Hemoglobin 7.2 g/dL (12.0-16.0); Mean Corpuscular HGB Conc 32 g/dL (31-36); Mean Corpuscular Hemoglobin 25 pg (27-31); Mean Corpuscular Volume 77 fL (80-97); Mean Platelet Volume 8.8 fL (7.4-10.4); Platelet Count 336 10^3/uL (150-450); Red Blood Count 2.88 10^6 /uL (3.70-4.87); Red Cell Distribution Width 16 % (10-15); White Blood Count 9.1 10^3/uL (3.5-10.8)
[2021-01-01 09:34] LABS: Calcium 8.5 mg/dL (8.6-10.3); EGFR African American 14.5 (>60); Potassium 3.7 mmol/L (3.5-5.0)
[2021-01-01] MEDS ORDERED: Midazolam 2 mg/2 ml VIAL 1 mg/ml 2 ml VIAL (2 mg) ONE (11:11)
[2021-01-01] MEDS: Aspirin EC 81 mg TAB.EC (enteric coated) PO SCH (11:32)
[2021-01-01] MEDS ORDERED: Bupivacaine 0.25% SDV 30 ML ONE (11:41)
[2021-01-01] MEDS ORDERED: ceFAZolin 2 GM in NS PREMIX 2 GM/100 ML BAG IVPB ONE (11:55)
[2021-01-01] MEDS ORDERED: Heparin *DIALYSIS* ONLY 1,000 UNITS/ML VIAL ONE (12:02)
[2021-01-01] MEDS ORDERED: Lidocaine 2% PF 5 ML VIAL ONE (12:12)
[2021-01-01] MEDS ORDERED: Cisatracurium 2 MG/ML MDV 5 ML ONE (12:12)
[2021-01-01] MEDS ORDERED: Propofol 10 MG/ML 20 ML BTL ONE (12:12)
[2021-01-01 12:28] LABS: Kappa Free Light Chain 14.1 mg/dL; Lambda Free Light Chain, S 8.14 mg/dL
[2021-01-01] MEDS ORDERED: fentaNYL 100 mcg/2 ml 50 MCG/ML VIAL ONE ×2 (12:34→14:37)
[2021-01-01] MEDS ORDERED: Phenylephrine 40 mcg/mL 10mL (400mcg) SYRINGE ONE (12:42)
[2021-01-01] MEDS ORDERED: EPHEDrine (Pressors) 50 MG/ML VIAL ONE (13:20)
[2021-01-01] MEDS ORDERED: Acetaminophen IV 1 GM/100ML 100 ML IV ONE (13:39)
[2021-01-01] MEDS ORDERED: DiMENhydriNATE IV 50 mg/ml 1 ml VIAL IV PUSH PRN (13:41)
[2021-01-01] MEDS ORDERED: Ondansetron 4 mg VIAL 2 MG/ML 2 ml VIAL IV PRN (13:41)
[2021-01-01] MEDS ORDERED: Naloxone 0.4 mg VIAL 0.4 mg/ml 1 ml VIAL IV PRN (13:41)
[2021-01-01] MEDS ORDERED: Ondansetron 4 mg VIAL 2 MG/ML 2 ml VIAL ONE (14:01)
[2021-01-01] MEDS: fentaNYL 100 mcg/2 ml 50 MCG/ML VIAL IV PRN ×3 (14:41→15:07)
[2021-01-02 05:29] LABS: Hematocrit 21 % (35-47); Hemoglobin 6.6 g/dL (12.0-16.0); Mean Corpuscular HGB Conc 32 g/dL (31-36); Mean Corpuscular Hemoglobin 25 pg (27-31); Mean Corpuscular Volume 78 fL (80-97); Mean Platelet Volume 8.5 fL (7.4-10.4); Platelet Count 308 10^3/uL (150-450); Red Blood Count 2.68 10^6 /uL (3.70-4.87); Red Cell Distribution Width 16 % (10-15); White Blood Count 12.7 10^3/uL (3.5-10.8)
[2021-01-02 05:47] LABS: Calcium 7.8 mg/dL (8.6-10.3); EGFR African American 11.1 (>60); EGFR Non-African American 9.2 (>60); Potassium 3.8 mmol/L (3.5-5.0)
[2021-01-02] MEDS: Aspirin EC 81 mg TAB.EC (enteric coated) PO SCH (08:01)
[2021-01-02] MEDS: Timolol 0.5% OPTH.SOL BTL BOTH EYES SCH (08:39)
[2021-01-02 11:31] LABS: Hematocrit 22 % (35-47); Hemoglobin 6.7 g/dL (12.0-16.0)
[2021-01-02] MEDS ORDERED: Iron Sucrose 200 MG in NS 0.9% 100 ml BAG 100 ML IVPB ONE (12:00)
[2021-01-02 12:29] LABS: Albumin 2.2 g/dL (3.4-4.7); Albumin/Globulin Ratio 0.65; Total Protein(PEP) 5.6 g/dL (6.3 - 7.9)
[2021-01-02] MEDS: Heparin 1,000 UNIT/ML 10 ml (10,000 UNITS) CATHLAB/DIALYSIS DIALYSIS PRN (12:32)
[2021-01-03 00:11] LABS: Hematocrit 24 % (35-47); Hemoglobin 7.9 g/dL (12.0-16.0)
[2021-01-03] MEDS: Heparin 1,000 UNIT/ML 10 ml (10,000 UNITS) CATHLAB/DIALYSIS DIALYSIS PRN ×4 (08:44→12:28)
[2021-01-03] MEDS: Aspirin EC 81 mg TAB.EC (enteric coated) PO SCH (13:40)
[2021-01-03] MEDS: Timolol 0.5% OPTH.SOL BTL BOTH EYES SCH (13:44)
[2021-01-03] MEDS ORDERED: Iron Sucrose 200 MG in NS 0.9% 100 ml BAG 100 ML IVPB ONE (21:30)
[2021-01-04] MEDS: Aspirin EC 81 mg TAB.EC (enteric coated) PO SCH (08:30)
[2021-01-04] MEDS: Timolol 0.5% OPTH.SOL BTL BOTH EYES SCH (08:30)
[2021-01-04] MEDS: Insulin GLARGINE 100 un/ml 10 ml VIAL SUBCUT SCH (20:54)
[2021-01-05] MEDS: Aspirin EC 81 mg TAB.EC (enteric coated) PO SCH (10:40)
[2021-01-05] MEDS: Timolol 0.5% OPTH.SOL BTL BOTH EYES SCH (14:32)
[2021-01-05] MEDS ORDERED: Latanoprost 0.005% 2.5 ml BTL BOTH EYES SCH (18:00)
[2021-01-05] MEDS ORDERED: Iron Sucrose 200 MG in NS 0.9% 100 ml BAG 100 ML IVPB ONE (18:00)
[2021-01-05] MEDS: Insulin GLARGINE 100 un/ml 10 ml VIAL SUBCUT SCH (21:31)
[2021-01-06 07:23] LABS: EGFR Non-African American 6.6 (>60)
[2021-01-06 08:12] LABS: Potassium 4.9 mmol/L (3.5-5.0)
[2021-01-06] MEDS: Heparin 1,000 UNIT/ML 10 ml (10,000 UNITS) CATHLAB/DIALYSIS DIALYSIS PRN ×4 (08:51→11:40)
[2021-01-06] MEDS ORDERED: Iron Sucrose 200 MG in NS 0.9% 100 ml BAG 100 ML IVPB ONE (11:00)
[2021-01-06] MEDS ORDERED: Ondansetron 4 mg VIAL 2 MG/ML 2 ml VIAL IV PRN (11:11)
[2021-01-06] MEDS: Aspirin EC 81 mg TAB.EC (enteric coated) PO SCH (12:39)
[2021-01-06 16:01] VITALS: BP 158/80
== END 2021-01-06 18:20 | disposition home health service (06) | DRG 447 ==
LOC: ED 20:17 → SUATTDRO 12-28 01:27 → MEDTELE 12-28 01:27
PROVIDERS: ADMIT Internal Medicine; ATTEND Internal Medicine